=== PATIENT | male | born 2005 | race Two or more races ===

== ENCOUNTER 2024-10-21 13:03 | Emergency (ER) | payer MEDICAID, SELFPAY ==
[2024-10-21 13:22] VITALS: BP 113/50; PULSE 71; RESP 16; TEMP 37.4; O2SAT 99; BMI 19.5
--- NOTE | 2024-10-21 13:33 | PD.EDHA ---
ED Headache RME/HPI General Chief Complaint: Dental/Oral/Throat Stated Complaint: TONSIL PAIN / SWELLINGL HEADACHE Time Seen by Provider: 10/21/24 13:23 Source: patient Arrival date/time: 10/21/24 13:03 Mode of arrival: ambulatory Limitations: no limitations RME / HPI RME / HPI Narrative: 19-year-old male presents with a chief complaint of a sore throat with difficulty swallowing food and fluids that began 2 days ago. Patient denies fever. Patient is able to consume fluids and continues to urinate. MD Complaint: other Onset (ago): day(s) Time: 02:00 (2 days) Onset description: gradual Severity: moderate Severity scale (1-10): 3 Quality: aching Relieving factors: nothing Exacerbating factors: none Related Data Previous Rx's ?Medication ?Instructions ?Recorded amoxicillin 875 mg-potassium 1 tab PO BID #14 tabs 09/27/22 clavulanate 125 mg tablet ibuprofen 600 mg tablet 600 mg PO TID PRN pain #30 tabs 09/27/22 acetaminophen 500 mg tablet 500 mg PO QID PRN pain #14 tabs 10/26/23 (Acetaminophen Pain Relief) tramadol 50 mg tablet 50 mg PO Q8H PRN pain #10 tabs 10/26/23 penicillin V potassium 500 mg 500 mg PO QID 10 days #40 tabs 10/21/24 tablet prednisone 20 mg tablet 20 mg PO QDAY 5 days #5 tabs 10/21/24 Allergies Allergy/AdvReac Type Severity Reaction Status Date / Time ibuprofen (From Motrin) Allergy Swelling Verified 10/26/23 22:46 of Lip/Tongue/Throat Review of Systems Review of Systems Systems Reviewed: All systems reviewed, normal except as documented Constitutional Constitutional: Reports as per HPI Comments: Sore throat Eyes Eyes: Reports as per HPI ENT Ears, Nose, Mouth, and Throat: Reports odynophagia, Reports post nasal drip and Reports sore throat Cardiovascular Cardiovascular: Reports system reviewed and no additional complaints, except as documented and Reports as per HPI Respiratory Respiratory: Reports system reviewed and no additional complaints, except as documented and Reports as per HPI Gastrointestinal Gastrointestinal: Reports odynophagia Neurologic Neurologic: Reports system reviewed and no additional complaints, except as documented and Reports as per HPI Past Medical History Social History SMOKING STATUS: Light (< 1 pack/day) ED Exam General Limitations: Present no limitations General appearance: Present alert and in no apparent distress Head Head exam: Present atraumatic Eye Eye exam: Present normal appearance and EOMI ENT ENT exam: Present normal exam, mucous membranes moist, TM's normal bilaterally and normal external ear exam Neck Neck exam: Present normal inspection and full ROM Chest Chest inspection: Present normal inspection Respiratory Respiratory exam: Present normal lung sounds bilaterally Cardiovascular Cardiovascular exam: Present regular rate Course Quality Measures none Vital Signs Vital signs: Vital Signs Temperature 99.4 F 10/21/24 13:22 Pulse Rate 71 10/21/24 13:22 Respiratory Rate 16 10/21/24 13:22 Blood Pressure 113/50 L 10/21/24 13:22 Pulse Oximetry (%) 99 10/21/24 13:22 Oxygen Delivery Method Room Air 10/21/24 13:22 Given pulse ox 99% room air Headache MDM Narrative MDM Narrative:: Patient will have penicillin 500 mg to be consumed presents emerged part 1 p.o. every 6+ x 10 days. Patient Prednisone 20 mg to be consumed 1 p.o. daily x 5 days. Patient has consumed Tylenol 650 mg every 4 hours as needed. Patient is to return if worse or if he is to follow-up with primary care physician in 3 to 4 days. Patient data External records reviewed:: [facility] previous records Clinical information provided by:: patient Social determinants that could affect healthcare access:: none Patient has the following chronic illnesses:: none How is presenting disease/condition affected by chronic disease/condition?: exacerbated by Evaluation data The following diagnostics were reviewed and interpreted by me:: lab results Lab and/or radiology exams considered but not ordered:: none Interpretation Summary: na Medications / Prescriptions Medications or Prescriptions considered but not ordered:: na Medication administrations:: na Consultations Consultation(s) initiated? (list below): No Diagnosis Differential diagnosis headache: other Most likely diagnosis given after review of the tests above:: Tonsillitis Admission Indicated Admission indicated?: not indicated Admission Request Was there a request for admission?: No Disposition Plan Disposition Plan: Discharge Discharge Attestation Discharge Attestation: The patient and all family members were given an opportunity to ask questions and understood the discharge instructions. Discharge instructions specifically effects, indications for sooner follow up or return to the emergency department, and the expected course of current diagnosis. Patient condition: Stable Discharge Plan Plan Patient Disposition: HOME (Self Care) Disposition Comment: Stable Prescriptions/Referrals Prescriptions/Med Rec: New penicillin V potassium 500 mg tablet 500 mg PO QID 10 Days Qty: 40 0RF prednisone 20 mg tablet 20 mg PO QDAY 5 Days Qty: 5 0RF No Action amoxicillin-pot clavulanate 875-125 mg tablet 1 tab PO BID Qty: 14 0RF ibuprofen 600 mg tablet 600 mg PO TID PRN (Reason: pain) Qty: 30 0RF tramadol 50 mg tablet 50 mg PO Q8H PRN (Reason: pain) Qty: 10 0RF acetaminophen [Acetaminophen Pain Relief] 500 mg tablet 500 mg PO QID PRN (Reason: pain) Qty: 14 0RF Problem List Clinical Impression: Acute tonsillitis Patient/Caregiver Discharge Instructions Discharge Activity: other Education Materials: ED Pharyngitis, Report Pending Additional Instructions: Patient is a gargle with warm water and salt, soft food, continue liquids as necessary Print Language: Frisian Stand Alone Forms: Shayla Award Info., Work/School Release, Patient Portal Info Letter PA/TELETYPE TECHNICIAN Supervising Physician PA/TELETYPE TECHNICIAN Supervising Physician: valeria
== END 2024-10-21 14:00 | disposition home or self-care (01) ==
LOC: SERX 13:56
PROVIDERS: Emergency Provider Emergency Medicine
DX: J03.90 Acute tonsillitis, unspecified (principal); F17.210 Nicotine dependence, cigarettes, uncomplicated
CPT/HCPCS: 99281

== ENCOUNTER 2025-02-24 03:21 | Emergency (ER) | payer MEDICAID, SELFPAY ==
[2025-02-24 03:21] VITALS: BMI 20.5
[2025-02-24 03:35] VITALS: BP 135/77; PULSE 69; RESP 16; TEMP 36.8; O2SAT 97
--- NOTE | 2025-02-24 03:49 | EDNOTE_ITS ---
ED Anxiety RME/HPI General Chief Complaint: Anxiety Stated Complaint: ANXIETY ATTACK Time Seen by Provider: 02/24/25 03:42 Arrival date/time: 02/24/25 03:21 20M with history of anxiety and drug use presents to ED with anxiety and insomnia. Patient denies SI/HI. Patient was taking meds, but stopped because they weren't working. Patient since last month as he states he feels worse after the marijuana wears off. Limitations: no limitations Related Data Previous Rx's ?Medication ?Instructions ?Recorded amoxicillin 875 mg-potassium 1 tab PO BID #14 tabs clavulanate 125 mg tablet ibuprofen 600 mg tablet 600 mg PO TID PRN pain #30 t abs 09/27/22 acetaminophen 500 mg tablet 500 mg PO QID PRN pain #14 tabs 10/26/23 (Acetaminophen Pain Relief) tramadol 50 mg tablet 50 mg PO Q8H PRN pain #10 ta bs 10/26/23 Allergies Allergy/AdvReac Type Severity Reaction Status Date / Time ibuprofen (From Motrin) Allergy Swelling Verified 10/26/23 22:46 of Lip/Tongue/Throat Review of Systems Review of Systems Systems Reviewed: All systems reviewed, normal except as documented Constitutional Constitutional: Reports system reviewed and no additional complaints, except as documented, Denies fever(s) and Denies headache(s) ENT Ears, Nose, Mouth, and Throat: Denies disequilibrium and Denies headache(s) Cardiovascular Cardiovascular: Reports system reviewed and no additional complaints, except as documented, Denies chest pain and Denies dyspnea Respiratory Respiratory: Reports system reviewed and no additional complaints, except as documented, Denies cough and Denies dyspnea Gastrointestinal Gastrointestinal: Reports system reviewed and no additional complaints, except as documented, Denies abdominal pain, Denies nausea and Denies vomiting Neurologic Neurologic: Reports system reviewed and no additional complaints, except as documented, Denies confusion, Denies disequilibrium and Denies headache(s) Psychiatric Psychiatric: Reports as per HPI, Reports anxiety, Denies confusion and Reports other (insomnia) Past Medical History Social History SMOKING STATUS: Current some day smoker ED Exam General Limitations: Present no limitations General appearance: Present alert, in no apparent distress and anxious Head Head exam: Present atraumatic Eye Eye exam: Present normal appearance, PERRL and EOMI ENT ENT exam: Present normal exam, normal oropharynx and mucous membranes moist Neck Neck exam: Present normal inspection, full ROM and trachea midline Chest Chest inspection: Present normal inspection and symmetric chest wall rise Respiratory Respiratory exam: Present normal lung sounds bilaterally Cardiovascular Cardiovascular exam: Present regular rate, normal rhythm and normal heart sounds Abdominal Exam Abdominal exam: Present soft and normal bowel sounds Extremities Exam Extremities exam: Present normal inspection and full ROM Back Exam Back exam: Present normal inspection and full ROM Neurological Exam Neurological exam: Present alert, oriented X3 and CN II-XII intact Psychiatric Psychiatric exam: Present normal affect and normal mood Skin Skin exam: Present warm, dry, intact and normal color Course Quality Measures none Orders Category Date Time Status Diazepam [Valium] Med 02/24/25 03:43 Discontinued 10 mg PO X1 ONE Vital Signs Vital signs: Vital Signs Temperature 98.3 F 02/24/25 03:35 Pulse Rate 69 02/24/25 03:35 Respiratory Rate 16 02/24/25 03:35 Blood Pressure 135/77 H 02/24/25 03:35 Pulse Oximetry (%) 97 02/24/25 03:35 Oxygen Delivery Method Room Air 02/24/25 03:35 Anxiety MDM Narrative MDM Narrative: 20M with history of anxiety and drug use presents to ED with anxiety and insomnia. Patient denies SI/HI. Patient was taking meds, but stopped because they weren't working. Patient since last month as he states he feels worse after the marijuana wears off. Physical exam reveals anxious individual. Patient is afebrile and alert. Meds and elder counselor given. Patient data External records reviewed:: [facility] previous records Clinical information provided by:: patient Social determinants that could affect healthcare access:: mental health Patient has the following chronic illnesses:: anxiety/drug How is presenting disease/condition affected by chronic disease/condition?: caused by Evaluation data The following diagnostics were reviewed and interpreted by me:: other (specify) (none) Lab and/or radiology exams considered but not ordered:: not ordered Interpretation Summary: n/a Medications / Prescriptions Medications or Prescriptions considered but not ordered:: ordered Medication administrations:: Medication Administration History Discontinued Medications Diazepam (Diazepam 5 Mg Tablet) 10 mg PO X1 ONE Stop: 02/24/25 03:44 Consultations Consultation(s) initiated? (list below): No Diagnosis Differential diagnosis anxiety: hyperventilation, panic disorder and acute anxiety Most likely diagnosis given after review of the tests above:: anxiety Admission Indicated Admission indicated?: not indicated Admission Request Was there a request for admission?: No Disposition Plan Disposition Plan: Discharge Discharge Attestation Discharge Attestation: The patient and all family members were given an opportunity to ask questions and understood the discharge instructions. Discharge instructions specifically effects, indications for sooner follow up or return to the emergency department, and the expected course of current diagnosis. Patient condition: Stable Discharge Plan Plan Patient Disposition: HOME (Self Care) Discharge Disposition comment: Stable Prescriptions/Referrals Prescriptions/Med Rec: No Action amoxicillin-pot clavulanate 875-125 mg tablet 1 tab PO BID Qty: 14 0RF ibuprofen 600 mg tablet 600 mg PO TID PRN (Reason: pain) Qty: 30 0RF tramadol 50 mg tablet 50 mg PO Q8H PRN (Reason: pain) Qty: 10 0RF acetaminophen [Acetaminophen Pain Relief] 500 mg tablet 500 mg PO QID PRN (Reason: pain) Qty: 14 0RF Referrals: Temporary Provider,ED [Physician] - In 1 week Problem List Clinical Impression: Anxiety Patient/Caregiver Discharge Instructions Education Materials: Your Body's Response to Anxiety, ED Anxiety Reaction Additional Instructions: Please follow-up with PCP within 24-48 hours and return immediately if symptoms worsen. Print Language: Japanese Stand Alone Forms: Patient Portal Info Letter ERNA/AGUEDA Supervising Physician ABRAHAM Supervising Physician: Dr. Jaeger
[2025-02-24] MEDS: DIAZEPAM 5 MG TABLET 10 MG PO (03:50)
== END 2025-02-24 03:52 | disposition home or self-care (01) ==
LOC: SERX 03:48
PROVIDERS: Emergency Provider Emergency Medicine
DX: F41.9 Anxiety disorder, unspecified (principal); G47.00 Insomnia, unspecified
CPT/HCPCS: 99282; A9270

== ENCOUNTER 2025-02-26 01:28 | Emergency (ER) | payer MEDICAID, SELFPAY ==
[2025-02-26 01:29] VITALS: BMI 20.9
[2025-02-26 02:03] VITALS: BP 131/71; PULSE 79; RESP 18; TEMP 37.2; O2SAT 98
--- NOTE | 2025-02-26 02:13 | PD.EDRME ---
Rapid Medical Screening Exam RME Arrival date/time: 02/26/25 01:28 20M with history of anxiety and drug use presents to ED with thoughts of hurting himself including by punching himself and using his pocketknife on himself. Patient was here 2 days ago but didn't have SI then. Chief Complaint: Anxiety Vital signs: Vital Signs Temperature 98.9 F 02/26/25 02:03 Pulse Rate 79 02/26/25 02:03 Respiratory Rate 18 02/26/25 02:03 Blood Pressure 131/71 H 02/26/25 02:03 Pulse Oximetry (%) 98 02/26/25 02:03 Oxygen Delivery Method Room Air 02/26/25 02:03
[2025-02-26 03:02] LABS: Basophils # (Auto) 0.0 Thou/mm3 (0.0-0.2); Basophils % (Auto) 0 % (0-2.5); Eosinophils # (Auto) 0.1 Thou/mm3 (0.0-0.5); Eosinophils % (Auto) 1 % (0-10); Hematocrit 46.0 % (41.0-53.0); Hemoglobin 15.9 g/dL (13.5-16.0); Immature Granulocytes Auto 0.02 Thou/mm3 (0.00-0.00); Lymphocytes # (Auto) 2.8 Thou/mm3 (1.0-4.8); Lymphocytes % (Auto) 38 % (10-50); Mean Corpuscular HGB Conc 34.6 g/dl (31.0-37.0); Mean Corpuscular Hemoglobin 29.9 pg (25.0-35.0); Mean Corpuscular Volume 87 fL (80-100); Monocytes # (Auto) 0.7 Thou/mm3 (0.0-0.8); Monocytes % (Auto) 9 % (0-12); Neutrophils # (Auto) 3.9 Thou/mm3 (1.8-7.7); Neutrophils % (Auto) 52 % (37-80); Nucleated Red Blood Cell # 0.00 Thou/mm3 (0.00-0.00); Nucleated Red Blood Cell % 0 /100 WBC (0); Platelet Count 229 Thou/mm3 (140-440); RDW Standard Deviation 42.5 fL (35.1-43.9); Red Blood Count 5.32 Miln/mm3 (4.50-5.90); White Blood Count 7.5 Thou/mm3 (3.8-10.6)
[2025-02-26 03:11] LABS: Amphetamine/Methamp Scrn,U Negative (Negative); Barbiturate Screen,Urine Negative (Negative); Benzodiazepines Screen,Urine Positive (Negative); Benzoylecgonine Screen, Ur Negative (Negative); Fentanyl Screen,Urine Negative (Negative); Opiate Screen,Urine Negative (Negative); THC Screen,Urine Positive (Negative)
[2025-02-26 03:24] LABS: Acetaminophen < 2.0 mcg/mL (10.0-20.0); Alanine Aminotransferase 9 U/L (10-49); Albumin, Serum 4.5 gm/dL (3.5-5.0); Albumin/Globulin Ratio 2.0 (1.2-2.2); Alkaline Phosphatase 87 U/L (46-116); Anion Gap 9 (7-16); Aspartate Amino Transferase 17 U/L (0-34); BUN/Creatinine Ratio 10 Ratio (12-20); Bilirubin,Total 0.7 mg/dL (0.3-1.2); Blood Urea Nitrogen 8 mg/dL (9-23); Calcium 10.2 mg/dL (8.3-10.6); Calcium (Corrected) 10.2 mg/dL (8.5-10.1); Carbon Dioxide 25.3 mMol/L (20.0-31.0); Chloride 106 mMol/L (98-107); Creatinine (Component) 0.8 mg/dL (0.6-1.3); Estimated Creatinine Clearance 140.6 mL/min (>60); Globulin 2.2 gm/dL (2.3-3.5); Glucose 85 mg/dL (74-106); Osmolality,Calculated 276 (275-295); Potassium 3.7 mMol/L (3.4-5.1); Salicylate < 3.0 mg/dL; Sodium 140 mMol/L (136-145); Thyroid Stimulating Hormone 2.39 uIU/mL (0.55-4.78); Total Protein 6.7 gm/dL (5.7-8.2); eGFR > 60 See Note
[2025-02-26 03:52] LABS: Syphilis Nonreactive (Nonreactive)
[2025-02-26 06:33] VITALS: BP 119/73; PULSE 80; RESP 18; TEMP 36.5; O2SAT 98
--- NOTE | 2025-02-26 07:35 | EDNOTE_ITS ---
ED Anxiety RME/HPI General Chief Complaint: Anxiety Stated Complaint: PANIC ATTACK Time Seen by Provider: 02/26/25 05:07 Arrival date/time: 02/26/25 01:28 Limitations: no limitations RME / HPI RME / HPI narrative: 02/26/25 01:28 20M with history of anxiety and drug use presents to ED with thoughts of hurting himself including by punching himself and using his pocketknife on himself. Patient was here 2 days ago but didn't have SI then. complaint: anxiety Onset (ago): day(s) Symptoms: other (Patient with suicidal ideation) Severity: severe Quality: constant History of similar episodes: Yes Provoking factors: emotional stress Exacerbating factors: thinking about event Associated symptoms: palpitations Related Data Previous Rx's ?Medication ?Instructions ?Recorded amoxicillin 875 mg-potassium 1 tab PO BID #14 tabs clavulanate 125 mg tablet ibuprofen 600 mg tablet 600 mg PO TID PRN pain #30 t abs 09/27/22 acetaminophen 500 mg tablet 500 mg PO QID PRN pain #14 tabs 10/26/23 (Acetaminophen Pain Relief) tramadol 50 mg tablet 50 mg PO Q8H PRN pain #10 ta bs 10/26/23 alprazolam 0.25 mg tablet (Xanax) 0.25 mg PO BID ANXIE TY #14 tabs 02/26/25 Allergies Allergy/AdvReac Type Severity Reaction Status Date / Time ibuprofen (From Motrin) Allergy Swelling Verified 10/26/23 22:46 of Lip/Tongue/Throat Review of Systems Review of Systems Systems Reviewed: All systems reviewed, normal except as documented Constitutional Constitutional: Reports system reviewed and no additional complaints, except as documented, Denies fever(s) and Denies headache(s) Eyes Eyes: Reports system reviewed and no additional complaints, except as documented ENT Ears, Nose, Mouth, and Throat: Reports system reviewed and no additional complaints, except as documented, Denies disequilibrium and Denies headache(s) Cardiovascular Cardiovascular: Reports system reviewed and no additional complaints, except as documented, Denies chest pain and Denies dyspnea Respiratory Respiratory: Reports system reviewed and no additional complaints, except as documented, Denies cough and Denies dyspnea Gastrointestinal Gastrointestinal: Reports system reviewed and no additional complaints, except as documented, Denies abdominal pain, Denies nausea and Denies vomiting Neurologic Neurologic: Reports system reviewed and no additional complaints, except as documented, Reports behavioral changes, Denies confusion, Denies disequilibrium and Denies headache(s) Psychiatric Psychiatric: Reports as per HPI, Reports anxiety, Reports behavioral changes, Denies confusion, Reports suicidal ideation and Reports other (insomnia) Past Medical History Past Medical History CARDIAC: Negative Congestive Heart Failure RESPIRATORY: Negative Chronic Obstructive Pulmonary Disease (COPD) GENITOURINARY: Negative Renal Disease ENDOCRINE: Negative Diabetes Mellitus Type 1 or Diabetes Mellitus Type 2 PSYCHO/SOCIAL: Positive Schizophrenia (not diagnosed), Bipolar Disorder (not diagnosed) and Attention Deficit Hyperactivity Disorder (not diagnosed) Social History SMOKING STATUS: Current every day smoker ED Exam General Limitations: Present no limitations General appearance: Present alert and in no apparent distress Head Head exam: Present atraumatic Eye Eye exam: Present normal appearance, PERRL and EOMI ENT ENT exam: Present normal exam, normal oropharynx and mucous membranes moist Neck Neck exam: Present normal inspection, full ROM and trachea midline Chest Chest inspection: Present normal inspection and symmetric chest wall rise Respiratory Respiratory exam: Present normal lung sounds bilaterally Cardiovascular Cardiovascular exam: Present regular rate, normal rhythm and normal heart sounds Abdominal Exam Abdominal exam: Present soft and normal bowel sounds Extremities Exam Extremities exam: Present normal inspection and full ROM Back Exam Back exam: Present normal inspection and full ROM Neurological Exam Neurological exam: Present alert, oriented X3 and CN II-XII intact Psychiatric Psychiatric exam: Present depressed, anxious and suicidal ideation; Absent normal affect or normal mood Skin Skin exam: Present warm, dry, intact and normal color Course Quality Measures none Orders Category Date Time Status Acetaminophen Stat Lab 02/26/25 02:47 Completed Alcohol, Blood Medical Stat Lab 02/26/25 07:34 Ordered CBC Stat Lab 02/26/25 02:47 Completed CMP [Comprehensive Metabolic Panel] Stat Lab 02/26/25 02:47 Completed Drug Screen,Urine Stat Lab 02/26/25 02:18 Completed Salicylate Stat Lab 02/26/25 02:47 Completed Syphilis Stat Lab 02/26/25 02:47 Completed TSH [Thyroid Stimulating Hormone] Stat Lab 02/26/25 02:47 Completed Vital Signs Vital signs: Vital Signs Temperature 98.9 F 02/26/25 02:03 Pulse Rate 79 02/26/25 02:03 Respiratory Rate 18 02/26/25 02:03 Blood Pressure 131/71 H 02/26/25 02:03 Pulse Oximetry (%) 98 02/26/25 02:03 Oxygen Delivery Method Room Air 02/26/25 02:03 Anxiety MDM Narrative MDM Narrative: 20M with history of anxiety and drug use presents to ED with thoughts of hurting himself including by punching himself and using his pocketknife on himself. Patient was here 2 days ago but didn't have SI then. Patient data External records reviewed:: [facility] previous records Clinical information provided by:: patient Social determinants that could affect healthcare access:: substance use Patient has the following chronic illnesses:: chronic anxiety How is presenting disease/condition affected by chronic disease/condition?: exacerbated by Evaluation data The following diagnostics were reviewed and interpreted by me:: lab results Lab and/or radiology exams considered but not ordered:: None Interpretation Summary: Laboratories were reviewed and were normal. Urine toxicology had THC and benzodiazepines. Patient with a history of THC use. Patient had been given benzodiazepines for his anxiety. Medications / Prescriptions Medications or Prescriptions considered but not ordered:: ativan Medication administrations:: See above Consultations Consultation(s) initiated? (list below): Yes Consultation #1 (Physician, Specialty, Details): TREATMENT COUNSELOR Diagnosis Differential diagnosis anxiety: acute anxiety Most likely diagnosis given after review of the tests above:: Suicidal ideation, depression, anxiety disorder Admission Indicated Admission indicated?: not indicated Admission Request Was there a request for admission?: No Disposition Plan Disposition Plan: Discharge Discharge Attestation Discharge Attestation: The patient and all family members were given an opportunity to ask questions and understood the discharge instructions. Discharge instructions specifically effects, indications for sooner follow up or return to the emergency department, and the expected course of current diagnosis. Patient condition: Stable Discharge Plan Plan Patient Disposition: HOME (Self Care) Patient condition on transfer: Stable Prescriptions/Referrals Prescriptions/Med Rec: New alprazolam [Xanax] 0.25 mg tablet 0.25 mg PO BID MDD 2 Qty: 14 0RF No Action amoxicillin-pot clavulanate 875-125 mg tablet 1 tab PO BID Qty: 14 0RF ibuprofen 600 mg tablet 600 mg PO TID PRN (Reason: pain) Qty: 30 0RF tramadol 50 mg tablet 50 mg PO Q8H PRN (Reason: pain) Qty: 10 0RF acetaminophen [Acetaminophen Pain Relief] 500 mg tablet 500 mg PO QID PRN (Reason: pain) Qty: 14 0RF Referrals: Misty Crisostomo PA-C [Primary Care Provider] - In 1 week Problem List Clinical Impression: Anxiety Patient/Caregiver Discharge Instructions Education Materials: Understanding Anxiety Disorders, Treating Anxiety Disorders ..., ED Anxiety Reaction Additional Instructions: Follow-up with your therapist as scheduled. Also follow-up with your psychiatry referral as scheduled. Follow-up with your regular medical doctor in 2 to 3 days. Print Language: Lithuanian Stand Alone Forms: Shayla Award Info., Patient Portal Info Letter
[2025-02-26 07:57] VITALS: BP 114/71; PULSE 70; RESP 17; TEMP 36.3; O2SAT 98
[2025-02-26 08:24] LABS: Alcohol, Blood Medical < 3.0 mg/dL (0-10.0)
[2025-02-26 09:23] VITALS: BP 122/77; PULSE 62; RESP 16; TEMP 36.6; O2SAT 100
--- NOTE | 2025-02-26 09:30 | PC.CC ---
0900-Pt is a 20 yo male who entered the ED on a volunarty request for a MH evaluation. ASW Aleyda Kellogg met with patient [id number] to complete assessment. ASW introduced self, role, and reason for assessment. ASW disclosed limits of confidentiality as well. Patient appeared alert and oriented to self, place, and situation. Patient was pleasant; his mood appeared anxious; his behavior appeared nervous. Patient?s thought process was linear and organized. No signs of delusions, paranoid or AVH. Pt reports for the past few days his anxiety has increased. Pt reports that he has insomnia and is not being treated for it. Pt reports that his anxiety and thoughts have increased, specifically at night and described rumination. Pt reports his therapist is Arabella Villalobos at [facility] and ASW confirmed that pt has an upcoming MH appointment on Friday 03/02. Pt reports that last night he felt uneasy and exhausted and could not sleep. Pt reports he smoked marijuana last night in hopes it would ease his anxiety and help him sleep, but reported that it made the symptoms worse. Pt reports he stopped smoking marjuana a few months ago but began a few days ago to help his anxiety. Pt reports he feels tired and wants to sleep but he cannot. Pt denies SI/HI and states he has never had thoughts of ending his life. However, pt reports selfharm such as hitting his face. Pt reports he does not want to do that, but feels that is the only way to stop his anxious feelings. Pt stated he started hitting himself a few days ago and denied h/o self harm. Pt reported the self harm was an isolated incident. Pt reported he does not have a PCP but will schedule an appointment with a provider at [facility] to start on his overall wellness. Pt was hopeful, but was also anxious. ASW staffed the case with KIT Ellis and it was determined that the pt can be provided community resources and discharged. Pt was provided resources to [facility], [facility] and resources to local MH agencies. ASW staffed this [facility] ER provider, he agreed and also prescribed him Xanax upon d/c. Assigned RN is aware.
== END 2025-02-26 09:23 | disposition home or self-care (01) ==
PROVIDERS: Physician Assistant; Emergency Provider Family Medicine; PCP Physician Assistant
DX: F41.9 Anxiety disorder, unspecified (principal)
CPT/HCPCS: 36415; 80053; 80307; 80320; 80329; 84443; 85025; 86780; 96127; 99283; A9270; G0480

== ENCOUNTER 2025-03-14 03:34 | Emergency (ER) | payer MEDICAID, SELFPAY ==
--- NOTE | 2025-03-14 03:46 | PD.EDPSYCH ---
ED Psych RME/HPI General Chief Complaint: Psychiatric Symptoms Stated Complaint: PSYCH EVAL Time Seen by Provider: 03/14/25 03:45 Arrival date/time: 03/14/25 03:34 RME / HPI RME / HPI Narrative: Dr. Ferrari?s Main ED Evaluation: 20yo male presents after having contacted paramedics due to concern for personal safety and that of others. Reports history of bipolar illness/schizophrenia on benzodiazepines only. No command hallucinations. No anteceding illness. Reports he is prone to psychotic rage . PMH includes bipolar illness/schizophrenia (untreated). PSH noncontributory. Denies illicit drug or alcohol use, but does smoke marijuana. Related Data Previous Rx's ?Medication ?Instructions ?Recorded amoxicillin 875 mg-potassium 1 tab PO BID #14 tabs 09/27/22 clavulanate 125 mg tablet ibuprofen 600 mg tablet 600 mg PO TID PRN pain #30 tabs 09/27/22 acetaminophen 500 mg tablet 500 mg PO QID PRN pain #14 tabs 10/26/23 (Acetaminophen Pain Relief) tramadol 50 mg tablet 50 mg PO Q8H PRN pain #10 tabs 10/26/23 alprazolam 0.25 mg tablet (Xanax) 0.25 mg PO BID ANXIETY #14 tabs 02/26/25 Allergies Allergy/AdvReac Type Severity Reaction Status Date / Time ibuprofen (From Motrin) Allergy Swelling Verified 10/26/23 22:46 of Lip/Tongue/Throat Review of Systems Review of Systems Systems Reviewed: All systems reviewed, normal except as documented Past Medical History Past Medical History CARDIAC: Negative Congestive Heart Failure RESPIRATORY: Negative Chronic Obstructive Pulmonary Disease (COPD) GENITOURINARY: Negative Renal Disease ENDOCRINE: Negative Diabetes Mellitus Type 1 or Diabetes Mellitus Type 2 PSYCHO/SOCIAL: Positive Schizophrenia (not diagnosed), Bipolar Disorder (not diagnosed) and Attention Deficit Hyperactivity Disorder (not diagnosed) Social History SMOKING STATUS: Current every day smoker ED Exam Narrative Physical exam: GENERAL APPEARANCE: alert and oriented x 4, slightly paranoid, occasional tangential speech, well-developed, well-nourished, no acute distress VITALS: All vitals were reviewed and the pulse ox is % on room air, which is normal according to my interpretation. HEENT: normocephalic, atraumatic NECK: supple LUNGS: no respiratory distress, normal effort HEART: good peripheral perfusion ABDOMEN: non distended EXTREMITIES: atraumatic NEUROLOGIC: awake; alert and oriented x4; cranial nerves II-XII grossly intact PSYCHIATRIC: slightly paranoid mood and affect, goal-directed, noted intermittent SI and HI SKIN: warm, dry, normal color; no rashes Course Quality Measures none Orders Category Date Time Status 1799 Psychiatric Hold NOW Care 03/14/25 04:15 Ordered Acetaminophen Stat Lab 03/14/25 04:35 Received Alcohol, Blood Medical Stat Lab 03/14/25 04:35 Received Basic Metabolic Panel Stat Lab 03/14/25 04:35 Received CBC Stat Lab 03/14/25 04:35 Completed Drug Screen,Urine Stat Lab 03/14/25 04:14 Received Salicylate Stat Lab 03/14/25 04:35 Received Vital Signs Vital signs: Vital Signs Temperature 98.1 F 03/14/25 04:14 Pulse Rate 82 03/14/25 04:14 Respiratory Rate 18 03/14/25 04:14 Blood Pressure 141/82 H 03/14/25 04:14 Pulse Oximetry (%) 98 03/14/25 04:14 Oxygen Delivery Method Room Air 03/14/25 04:14 Psych MDM Narrative MDM Narrative:: Scribe Attestation: 03/14/25 - Ifrah Diaz am scribing for and in the presence of Dr. Ferrari. 20yo male presents after having contacted paramedics due to concern for personal safety and that of others. Reports history of bipolar illness/schizophrenia on benzodiazepines only. Please see PE findings. Patient underwent medical psychiatric screening/laboratory examination which is currently pending at this time. Was placed on a 1799 given SI/HI. Patient's care will be endorsed to AM physician for final disposition. Dx: history of schizophrenia, SI, HI Patient data External records reviewed:: [facility] previous records (Per chart review, patient was seen here on 02/26/25 for anxiety.) Clinical information provided by:: patient Social determinants that could affect healthcare access:: mental health Patient has the following chronic illnesses:: anxiety, bipolar illness/schizophrenia How is presenting disease/condition affected by chronic disease/condition?: caused by Evaluation data The following diagnostics were reviewed and interpreted by me:: lab results Lab and/or radiology exams considered but not ordered:: none Interpretation Summary: Pending at signout. Medications / Prescriptions Medications or Prescriptions considered but not ordered:: none Medication administrations:: none Consultations Consultation(s) initiated? (list below): No Diagnosis Psych Differential Diagnosis: acute psychosis, chronic schizophrenia, suicidal ideation, bipolar disorder, drug-induced psychotic disorder and acute anxiety Most likely diagnosis given after review of the tests above:: see clinical impression below Admission Indicated Admission indicated?: not indicated Admission Request Was there a request for admission?: No Disposition Plan Disposition Plan: other (specify) (Signed out to Dr. Bernal at 6 AM.) Discharge Plan Prescriptions/Referrals Prescriptions/Med Rec: No Action amoxicillin-pot clavulanate 875-125 mg tablet 1 tab PO BID Qty: 14 0RF ibuprofen 600 mg tablet 600 mg PO TID PRN (Reason: pain) Qty: 30 0RF tramadol 50 mg tablet 50 mg PO Q8H PRN (Reason: pain) Qty: 10 0RF acetaminophen [Acetaminophen Pain Relief] 500 mg tablet 500 mg PO QID PRN (Reason: pain) Qty: 14 0RF alprazolam [Xanax] 0.25 mg tablet 0.25 mg PO BID MDD 2 Qty: 14 0RF Referrals: No Primary/Family,Physician [Primary Care Provider] - In 1 week Problem List Clinical Impression: Suicidal ideation, Homicidal ideation, History of schizophrenia Patient/Caregiver Discharge Instructions Print Language: Frisian
[2025-03-14 04:04] VITALS: PULSE 70; RESP 19; O2SAT 97
[2025-03-14 04:14] VITALS: BP 141/82; PULSE 82; RESP 18; TEMP 36.7; O2SAT 98
[2025-03-14 05:15] LABS: Basophils # (Auto) 0.0 Thou/mm3 (0.0-0.2); Basophils % (Auto) 0 % (0-2.5); Eosinophils # (Auto) 0.1 Thou/mm3 (0.0-0.5); Eosinophils % (Auto) 1 % (0-10); Hematocrit 43.7 % (41.0-53.0); Hemoglobin 15.4 g/dL (13.5-16.0); Immature Granulocytes Auto 0.02 Thou/mm3 (0.00-0.00); Lymphocytes # (Auto) 2.6 Thou/mm3 (1.0-4.8); Lymphocytes % (Auto) 44 % (10-50); Mean Corpuscular HGB Conc 35.2 g/dl (31.0-37.0); Mean Corpuscular Hemoglobin 30.7 pg (25.0-35.0); Mean Corpuscular Volume 87 fL (80-100); Monocytes # (Auto) 0.4 Thou/mm3 (0.0-0.8); Monocytes % (Auto) 7 % (0-12); Neutrophils # (Auto) 2.8 Thou/mm3 (1.8-7.7); Neutrophils % (Auto) 47 % (37-80); Nucleated Red Blood Cell # 0.00 Thou/mm3 (0.00-0.00); Nucleated Red Blood Cell % 0 /100 WBC (0); Platelet Count 189 Thou/mm3 (140-440); RDW Standard Deviation 41.7 fL (35.1-43.9); Red Blood Count 5.02 Miln/mm3 (4.50-5.90); White Blood Count 6.0 Thou/mm3 (3.8-10.6)
[2025-03-14 05:40] LABS: Acetaminophen < 2.0 mcg/mL (10.0-20.0); Alcohol, Blood Medical < 3.0 mg/dL (0-10.0); Anion Gap 8 (7-16); BUN/Creatinine Ratio 10 Ratio (12-20); Blood Urea Nitrogen 7 mg/dL (9-23); Calcium 9.3 mg/dL (8.3-10.6); Carbon Dioxide 26.9 mMol/L (20.0-31.0); Chloride 107 mMol/L (98-107); Creatinine (Component) 0.7 mg/dL (0.6-1.3); Glucose 159 mg/dL (74-106); Osmolality,Calculated 284 (275-295); Potassium 3.4 mMol/L (3.4-5.1); Salicylate < 3.0 mg/dL; Sodium 142 mMol/L (136-145); eGFR > 60 See Note
--- NOTE | 2025-03-14 06:24 | PD.EDADDENDU ---
Emergency Room Addendum Addendum Narrative: 0600: Care assumed from Dr. Jaeger the previous shift emergency physician. Past medical, surgical, social and family history reviewed. Vitals and home medications reviewed. I will assume the care of the patient at this time. Patient was placed on a 1799 given SI/HI. Please refer to the emergency department record for history and examination from initial visit.? Patient is medically cleared for psychiatric evaluation. The patient was placed in ED observation care at 03/14/2025 at 0600 hours. The patient was placed in ED observation care pending mental health evaluation. Then, [facility] placed her on 5150 hold and now on observation care because of undifferentiated decompensated behavioral health evaluation, no behavioral health bed available. The patients past medical history, social history, and family history were reviewed. The plan of care will include serial examinations. While in ED observation the patient will have access to water, food, and personal hygiene. If the patient takes home medication(s), they will be continued in ED observation. Physical exam by me shows patient under no acute distress at this time. 0835: [facility] placed the patient on a 5150 hold for DTS due to suicidal ideation with plan to kill himself. Patient is pending placement. 1130: Patient has been accepted to [facility]. ETA is 1300 hours. 1300: EMS here to pick the patient and transport to [facility]. ED observation care ended at 03/14/2025 at 1300 hours. Diagnoses: - Suicidal ideation - Homicidal ideation - History of schizophrenia
[2025-03-14 06:45] LABS: Amphetamine/Methamp Scrn,U Negative (Negative); Barbiturate Screen,Urine Negative (Negative); Benzodiazepines Screen,Urine Positive (Negative); Benzoylecgonine Screen, Ur Negative (Negative); Fentanyl Screen,Urine Negative (Negative); Opiate Screen,Urine Negative (Negative); THC Screen,Urine Positive (Negative)
[2025-03-14 06:49] VITALS: BP 136/80; PULSE 79; RESP 18; TEMP 36.6; O2SAT 98
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
[2025-03-14 07:43] VITALS: BP 101/58; PULSE 64; RESP 17; TEMP 36.7; O2SAT 97
--- NOTE | 2025-03-14 08:36 | PC.CC ---
Driveway Attendant (CC), Bonnie, met with patient [id number] to do initial mental health evaluation. CC introduced herself, role in the agency, reason for visit, and discussed limits of confidentiality. This is 20-year-old, , single male who contacted [facility] for a mental health evaluation due to acting erratic with suicidal/homicidal thoughts. Patient appeared alert and oriented to self, time, place, and situation. Patient appears stated age. Patient made good eye contact. Patient?s attitude appeared pleasant and cooperative. Patient?s behavior appeared ordinary. Patient?s mood appears ordinary. No signs of delusions, paranoia or hallucinations. CC was abble to verify address and phone number. Patient reported that he resides at home with his parents and two older brothers. Patient reported that he is independent with all ADLs, no DME use. Patient is currently unemployed and financially sustaning himself from using his savings and financial assistance from family. Patient reported that he contacted [facility] after feeling rage towards his family. Patient reported that last night, he decided to cut his long hair off, when he showed his family, they all laughed at him. Patient reported that at that time, he could feel an uncontrollable rage, wanted to break/hit items, and started pacing around the house; he reported, I wanted to beat their ass . Patient declined having any intention of hitting his family or having a plan to kill them. He reported that he practices self control by calling [facility]. Patient reported that he often suffers from explosive outburst. Patient reported that he has threatened a few people, especially, his girlfriend's father, but denies having a plan to kill him. Patient reported that before calling [facility], he thought about driving his vehicle to [place], but stopped himself when he thought the financial burden it would create for his family to bury him.Patient reported that for the last few weeks, he has slept 1 to 2 hours per day. Patient reported that he was attending outpatient therapy services at [facility]; however, he was recently transferred to [facility] for more services. Patient was in the process of being ruled out: schizophrenia vs. bipolar. Patient's follow-up appointment is on 03/18/2025. Patient reported that he presented to the ED on 02/26/2025 for anxiety. Patient was prescribed xanax. Patient reported that is has not helped him. Patient reported that he just feels numbed for a few hours. 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 CC attempted to obtain collateral information from his mother, Roma, with no success. CC discussed case with Natali PANTOJA. CC will complete 5150 hold for DTS due to suicidal ideation with plan to kill himself. CC was unable to safety plan with patient or family. CC completed senior care advisement with patient. CC updated Dr. Bernal and bedside RN-Brenda. Patient is pending LPS Placement.
--- NOTE | 2025-03-14 10:49 | PC.NURSE ---
Ida from [facility] called and wanted report, gave all requested information and Ida states she will accept pt. Ida requests to talk to MATHEUS Nicole, gave phone to MATHEUS Nicole.
--- NOTE | 2025-03-14 11:15 | PC.CC ---
Rug Dyer Helper, Bonnie received a phone from Evelyn, from [facility]. Patient has been accepted under the care of Dr. Garza. Patient will be received at [facility]. RN to provide report to [phone], ext: [phone]. CC completed acute transfer packet. CC scheduled EMS transportation for 1330.
== END 2025-03-14 12:05 ==
PROVIDERS: Emergency Medicine; Emergency Provider Emergency Medicine
DX: F20.9 Schizophrenia, unspecified (principal); F31.9 Bipolar disorder, unspecified; R45.851 Suicidal ideations; R45.850 Homicidal ideations; Z75.1 Person awaiting admission to adequate facility elsewhere
CPT/HCPCS: 36415; 80048; 80307; 80320; 80329; 85025; 96127; 99285; G0480

== ENCOUNTER 2025-03-30 23:30 | Emergency (ER) | payer MEDICAID, SELFPAY ==
[2025-03-30 23:31] VITALS: BMI 20.9
--- NOTE | 2025-03-30 23:53 | PD.EDPSYCH ---
ED Psych RME/HPI General Chief Complaint: Psychiatric Symptoms Stated Complaint: SUICIDAL THOUGHTS Time Seen by Provider: 03/30/25 23:53 Arrival date/time: 03/30/25 23:30 RME / HPI RME / HPI Narrative: Dr. Wiggins?s Main ED Evaluation: 20yo male with a history of schizophrenia presents to the ED for a voluntary psychiatric evaluation. Patient states he was recently discharged from [facility], but reports he still continues to feel suicidal and homicidal. 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 He started taking Risperdal today. No other complaints reported. Related Data Previous Rx's ?Medication ?Instructions ?Recorded amoxicillin 875 mg-potassium 1 tab PO BID #14 tabs 09/27/22 clavulanate 125 mg tablet ibuprofen 600 mg tablet 600 mg PO TID PRN pain #30 tabs 09/27/22 acetaminophen 500 mg tablet 500 mg PO QID PRN pain #14 tabs 10/26/23 (Acetaminophen Pain Relief) tramadol 50 mg tablet 50 mg PO Q8H PRN pain #10 tabs 10/26/23 alprazolam 0.25 mg tablet (Xanax) 0.25 mg PO BID ANXIETY #14 tabs 02/26/25 Allergies Allergy/AdvReac Type Severity Reaction Status Date / Time ibuprofen (From Motrin) Allergy Swelling Verified 10/26/23 22:46 of Lip/Tongue/Throat Review of Systems Review of Systems Systems Reviewed: All systems reviewed, normal except as documented ED Exam Narrative Physical exam: Generally patient is alert oriented noncombative and obeying commands, head is normocephalic atraumatic, eyes pupils equal round reactive to light, neck shows no nuchal rigidity, heart regular rate and rhythm, lungs clear to auscultation equal bilaterally, abdomen soft bowel sounds present nondistended nontender, neurologic exam shows the patient be alert and orient x 4 with mild pressure type speech but [place] Coma Scale of 15 without focal motor deficit. Psychiatric exam showed mild pressure type speech and the patient states that he is suicidal on again off again Course Quality Measures none Orders Category Date Time Status Consult Supervisor Edging NOW Care 03/31/25 00:11 Active Alcohol, Blood Medical Stat Lab 03/31/25 00:13 Completed CBC Stat Lab 03/31/25 00:13 Completed CMP [Comprehensive Metabolic Panel] Stat Lab 03/31/25 00:13 Completed Drug Screen,Urine Stat Lab 03/31/25 00:30 Completed risperiDONE [RisperDAL] Med 03/31/25 00:09 Discontinued 1 mg PO X1 ONE Vital Signs Vital signs: Vital Signs Temperature 98.7 F 03/30/25 23:59 Pulse Rate 98 03/30/25 23:59 Respiratory Rate 18 03/30/25 23:59 Blood Pressure 127/80 03/30/25 23:59 Pulse Oximetry (%) 96 03/30/25 23:59 Oxygen Delivery Method Room Air 03/30/25 23:59 Psych MDM Narrative MDM Narrative:: Scribe Attestation: 03/30/25 - Emily, Ifrah King, am scribing for and in the presence of Dr. Wiggins. I interpreted all labs. There was no significant abnormality. Patient's plan for suicide is to get the police to kill him. Patient was given 1 mg of Risperdal p.o. here in the emergency room. He is medically clear for social media manager evaluation. He wants to be a voluntary admit to a psychiatric facility. Differential diagnosis: Suicidal ideation, homicidal ideation, acute psychosis, schizophrenia, bipolar disorder Patient data External records reviewed:: [facility] previous records (Per chart review, patient was seen here on 03/14/25 for schizophrenia.) Clinical information provided by:: patient Social determinants that could affect healthcare access:: mental health Patient has the following chronic illnesses:: schizophrenia How is presenting disease/condition affected by chronic disease/condition?: caused by Evaluation data The following diagnostics were reviewed and interpreted by me:: lab results Lab and/or radiology exams considered but not ordered:: none Interpretation Summary: See MDM. Medications / Prescriptions Medications or Prescriptions considered but not ordered:: none Medication administrations:: Medication Administration History Discontinued Medications Risperidone (Risperidone 1 Mg Tablet) 1 mg PO X1 ONE Stop: 03/31/25 00:10 Last Admin: 03/31/25 00:42 Dose: 1 mg Documented By: ALE see above Consultations Consultation(s) initiated? (list below): No Diagnosis Psych Differential Diagnosis: other (See MDM.) Most likely diagnosis given after review of the tests above:: see clinical impression below Admission Indicated Admission indicated?: not indicated Admission Request Was there a request for admission?: No Disposition Plan Disposition Plan: other (specify) (Signed out to Dr. Love at 6 AM.) Discharge Plan Prescriptions/Referrals Prescriptions/Med Rec: No Action amoxicillin-pot clavulanate 875-125 mg tablet 1 tab PO BID Qty: 14 0RF ibuprofen 600 mg tablet 600 mg PO TID PRN (Reason: pain) Qty: 30 0RF tramadol 50 mg tablet 50 mg PO Q8H PRN (Reason: pain) Qty: 10 0RF acetaminophen [Acetaminophen Pain Relief] 500 mg tablet 500 mg PO QID PRN (Reason: pain) Qty: 14 0RF alprazolam [Xanax] 0.25 mg tablet 0.25 mg PO BID MDD 2 Qty: 14 0RF Referrals: Miguel Angel Garcia MD [Primary Care Provider, Family Practice] - In 1 week Problem List Clinical Impression: Suicidal ideation, Bipolar disorder, Chronic schizophrenia Patient/Caregiver Discharge Instructions Additional Instructions: Patient is medically clear for social media manager evaluation Print Language: Azeri
[2025-03-30 23:59] VITALS: BP 127/80; PULSE 98; RESP 18; TEMP 37.1; O2SAT 96
[2025-03-31 00:36] LABS: Basophils # (Auto) 0.0 Thou/mm3 (0.0-0.2); Basophils % (Auto) 0 % (0-2.5); Eosinophils # (Auto) 0.1 Thou/mm3 (0.0-0.5); Eosinophils % (Auto) 2 % (0-10); Hematocrit 41.9 % (41.0-53.0); Hemoglobin 14.3 g/dL (13.5-16.0); Immature Granulocytes Auto 0.02 Thou/mm3 (0.00-0.00); Lymphocytes # (Auto) 2.3 Thou/mm3 (1.0-4.8); Lymphocytes % (Auto) 35 % (10-50); Mean Corpuscular HGB Conc 34.1 g/dl (31.0-37.0); Mean Corpuscular Hemoglobin 30.3 pg (25.0-35.0); Mean Corpuscular Volume 89 fL (80-100); Monocytes # (Auto) 0.9 Thou/mm3 (0.0-0.8); Monocytes % (Auto) 14 % (0-12); Neutrophils # (Auto) 3.2 Thou/mm3 (1.8-7.7); Neutrophils % (Auto) 49 % (37-80); Nucleated Red Blood Cell # 0.00 Thou/mm3 (0.00-0.00); Nucleated Red Blood Cell % 0 /100 WBC (0); Platelet Count 205 Thou/mm3 (140-440); RDW Standard Deviation 42.0 fL (35.1-43.9); Red Blood Count 4.72 Miln/mm3 (4.50-5.90); White Blood Count 6.5 Thou/mm3 (3.8-10.6)
[2025-03-31 00:46] LABS: Amphetamine/Methamp Scrn,U Negative (Negative); Barbiturate Screen,Urine Negative (Negative); Benzodiazepines Screen,Urine Negative (Negative); Benzoylecgonine Screen, Ur Negative (Negative); Fentanyl Screen,Urine Negative (Negative); Opiate Screen,Urine Negative (Negative); THC Screen,Urine Positive (Negative)
[2025-03-31 01:16] LABS: Alanine Aminotransferase 9 U/L (10-49); Albumin, Serum 4.1 gm/dL (3.5-5.0); Albumin/Globulin Ratio 2.3 (1.2-2.2); Alcohol, Blood Medical < 3.0 mg/dL (0-10.0); Alkaline Phosphatase 67 U/L (46-116); Anion Gap 10 (7-16); Aspartate Amino Transferase 16 U/L (0-34); BUN/Creatinine Ratio 11 Ratio (12-20); Bilirubin,Total 0.3 mg/dL (0.3-1.2); Blood Urea Nitrogen 9 mg/dL (9-23); Calcium 9.3 mg/dL (8.3-10.6); Calcium (Corrected) 9.3 mg/dL (8.5-10.1); Carbon Dioxide 26.1 mMol/L (20.0-31.0); Chloride 107 mMol/L (98-107); Creatinine (Component) 0.8 mg/dL (0.6-1.3); Estimated Creatinine Clearance 140.6 mL/min (>60); Globulin 1.8 gm/dL (2.3-3.5); Glucose 123 mg/dL (74-106); Osmolality,Calculated 284 (275-295); Potassium 3.5 mMol/L (3.4-5.1); Sodium 143 mMol/L (136-145); Total Protein 5.9 gm/dL (5.7-8.2); eGFR > 60 See Note
--- NOTE | 2025-03-31 02:48 | PC.NURSE ---
WE HAD DOWN TIME FROM [phone].
[2025-03-31 06:26] VITALS: BP 117/68; PULSE 73; RESP 16; TEMP 36.6; O2SAT 98
[2025-03-31 10:01] VITALS: PULSE 89; RESP 16; TEMP 36.6; O2SAT 99
--- NOTE | 2025-03-31 10:42 | EDNOTE_ITS ---
Emergency Room Addendum Addendum Narrative: 0600: Care assumed from Dr. Wiggins, the previous shift emergency physician. Past medical, surgical, social and family history reviewed. Vitals and home medications reviewed. I will assume the care of the patient at this time, pending mental health evaluation and final disposition. Please refer to the emergency department record for history and examination from initial visit.?The following addendum documentation note is intended to reflect any pending information, findings, or radiology results not included in the patient?s initial chart. 1110h: Patient has been evaluated by our social worker delinquency prevention and cleared the patient to be discharged home. State there is a safety plan in place, both patient and mother are in agreement.
--- NOTE | 2025-03-31 11:01 | PC.CC ---
Patient is a 20 year-old year old male who presents to the hospital for suicidal ideations. Jak made [id number] contact with patient to complete assessment. MOTOR VEHICLE OR CARAVAN SALESPERSON introduced self, role, and reason for assessment. MOTOR VEHICLE OR CARAVAN SALESPERSON disclosed limits of confidentiality as well. Patient appeared alert and oriented to self, place, and situation. Patient made appropriate eye contact with this ticket writer and remained euthymic throughout assessment. Patient?s attitude appeared pleasant and cooperative. No signs of delusions, paranoia or hallucinations. Patient confirmed information on demographics and reports to living with his mother and siblings. Patient reports that yesterday he was having an episode as he had not taken his medication. This ticket writer asked patient to clarify what he meant by ?episode?. Patient stated he was having angry outburst and hitting ?stuff?. Patient disclosed he was having suicidal ideations but did not have a plan or intent and this is why he bought himself to the hospital. Patient reports he was recently released from [facility] as he was placed on a 5150-hold. He disclosed that he was placed on a 5150-hold in March as he was having suicidal ideations with plan and intention of driving his car into the [place]. Patient was seen by psychiatrist at [facility] yesterday. Patient has an intake assessment on 04/06/2025 with [facility] for outpatient mental health therapy. At the time of encounter patient denied suicidal and homicidal ideations; visual and auditory hallucinations. Patient reports he feels better now and is no longer feeling angry or suicidal. Patient reports he feels safe being discharged. MOTOR VEHICLE OR CARAVAN SALESPERSON explored with patient what he has to look forward to he stated his future, his family, and his girlfriend. Patient reports that he knows his coping mechanisms when he has suicidal ideations such as going for walks, listening to music, and taking deep breaths. Patient reports that if these coping mechanisms do not work this is when he comes to the hospital. Patient scored High-Risk on the Viola Screening. Patient toxicology was positive for marijuana. Patient provided consent for MOTOR VEHICLE OR CARAVAN SALESPERSON to make contact with his mother, Roma Marcial. She confirmed that patient was seen yesterday by a psychiatrist at [facility] and was prescribed medication. Mother does not know what patient?s diagnosis is. She reports she feels safe taking the patient home and providing extra supervision for the next 72 hours that although she works he will not be home alone as his older brothers are home. Maggie PANTOJA made telephone contact with [facility] staff confirmed patient is connected to them and was seen by Dr. Gordon yesterday and has a follow-up appointment on April 06, 2025. Upon clinical consultation with Natali PANTOJA patient does not meet criteria for 5150-hold and safety plan will be established with patient and mother. Per mother, there are no firearms in the home. Mother reports that she will keep all sharps and medications in a secure location. Patient will not be left alone at home and extra supervision will be provided for the next 72 hours. Mother will ensure patient attends his follow-up appointment with Asim Sarmiento on 04/06/2025 at 1:00 pm. Per mother, she can meat pickler patient from the hospital upon being discharged. Maggie PANTOJA provided update of safety plan to medical team and discharge plan with mother, Roma Marcial.
[2025-03-31 11:38] VITALS: BP 114/70; PULSE 82; RESP 17; TEMP 36.7; O2SAT 98
== END 2025-03-31 11:38 | disposition home or self-care (01) ==
PROVIDERS: Emergency Provider Emergency Medicine; PCP Family Medicine
DX: R45.851 Suicidal ideations (principal); F31.9 Bipolar disorder, unspecified; F20.9 Schizophrenia, unspecified
CPT/HCPCS: 36415; 80053; 80307; 80320; 85025; 96127; 99284; A9270; G0480

== ENCOUNTER 2025-04-02 22:54 | Emergency (ER) | payer MEDICAID, SELFPAY ==
[2025-04-02 22:56] VITALS: BP 164/99; PULSE 112; RESP 19; TEMP 37.4; O2SAT 96
--- NOTE | 2025-04-02 23:09 | PD.EDPSYCH ---
ED Psych RME/HPI General Chief Complaint: Suicidal Stated Complaint: 5150 HOLD DANGER TO SELF Time Seen by Provider: 04/02/25 23:31 Arrival date/time: 04/02/25 22:54 RME / HPI RME / HPI Narrative: See [facility] for Dr. Powers's HPI documentation. Related Data Previous Rx's ?Medication ?Instructions ?Recorded amoxicillin 875 mg-potassium 1 tab PO BID #14 tabs 09/27/22 clavulanate 125 mg tablet ibuprofen 600 mg tablet 600 mg PO TID PRN pain #30 tabs 09/27/22 acetaminophen 500 mg tablet 500 mg PO QID PRN pain #14 tabs 10/26/23 (Acetaminophen Pain Relief) tramadol 50 mg tablet 50 mg PO Q8H PRN pain #10 tabs 10/26/23 alprazolam 0.25 mg tablet (Xanax) 0.25 mg PO BID ANXIETY #14 tabs 02/26/25 Allergies Allergy/AdvReac Type Severity Reaction Status Date / Time ibuprofen (From Motrin) Allergy Swelling Verified 10/26/23 22:46 of Lip/Tongue/Throat Review of Systems Review of Systems Systems Reviewed: All systems reviewed, normal except as documented ED Exam Narrative Physical exam: See [facility] for Dr. Powers's physical exam documentation. Course Quality Measures none Orders Category Date Time Status Referral Psych Eval Stat Cons 04/02/25 23:33 Active Acetaminophen Stat Lab 04/02/25 23:43 Completed Alcohol, Blood Medical Stat Lab 04/02/25 23:43 Completed Bilirubin,Direct Stat Lab 04/02/25 23:43 Completed CBC Stat Lab 04/02/25 23:43 Completed CMP [Comprehensive Metabolic Panel] Stat Lab 04/02/25 23:43 Completed Drug Screen,Urine Stat Lab 04/02/25 23:53 Completed Magnesium Stat Lab 04/02/25 23:43 Completed Salicylate Stat Lab 04/02/25 23:43 Completed TSH [Thyroid Stimulating Hormone] Stat Lab 04/02/25 23:43 Completed Vital Signs Vital signs: Vital Signs Temperature 99.3 F 04/02/25 22:56 Pulse Rate 112 H 04/02/25 22:56 Respiratory Rate 19 04/02/25 22:56 Blood Pressure 164/99 H 04/02/25 22:56 Pulse Oximetry (%) 96 04/02/25 22:56 Oxygen Delivery Method Room Air 04/02/25 22:56 Psych MDM Narrative MDM Narrative:: This section includes all my notes and documentations, including HPI, PE, and ED course. Tico Powers MD HPI: 20yo male with history of schizophrenia, bipolar disorder BIB [facility] on 5150 hold. He reports wanting to be shot by police. No thoughts of hurting other people. Denies hallucinations. No other complaints. ROS: All negative except as documented in HPI. Physical Exam: General: Alert and oriented. No acute distress when remaining still. Eyes: Conjunctivae and lids clear. PERRL. EOMI. ENT: No nasal congestion. Neck: Supple. Heart: RRR. Lungs: No respiratory distress. Good air movement. No rhonchi, wheezing, rales. Abdomen: Soft and nontender. Normal bowel sounds. No distension. No rebound or guarding. Back: No CVA tenderness. Skin: Warm and dry. Neuro: Alert and oriented X 3. Cranial nerves II to XII grossly normal. No peripheral motor deficits. I reviewed all diagnostic test results. Blood tests are unremarkable. UDS positive for marijuana. At this point, diagnoses include: Suicidal ideation Marijuana use Entered order for evaluation by our ED urgent care physician. Patient is medically clear for further psychiatric care. At 6 AM on 04/24, the care of the patient was transferred to Dr. Pat. Tico Powers MD Patient data External records reviewed:: [facility] previous records (Per chart review, patient was seen here on 03/30/25 for bipolar disorder.) Clinical information provided by:: patient and law enforcement Social determinants that could affect healthcare access:: mental health Patient has the following chronic illnesses:: schizophrenia, bipolar disorder How is presenting disease/condition affected by chronic disease/condition?: caused by Evaluation data The following diagnostics were reviewed and interpreted by me:: lab results Lab and/or radiology exams considered but not ordered:: none Interpretation Summary: I reviewed all diagnostic test results. Blood tests are unremarkable. UDS positive for marijuana. Medications / Prescriptions Medications or Prescriptions considered but not ordered:: none Medication administrations:: none Consultations Consultation(s) initiated? (list below): No Diagnosis Psych Differential Diagnosis: acute psychosis, chronic schizophrenia, suicidal ideation, bipolar disorder, depression, drug-induced psychotic disorder and acute anxiety Most likely diagnosis given after review of the tests above:: Suicidal ideation Marijuana use Admission Indicated Admission indicated?: not indicated Explain why admission is indicated or not indicated:: No psychiatric service at this facility. Admission Request Was there a request for admission?: No Disposition Plan Disposition Plan: other (specify) (Signed out to Dr. Pat at 6 AM.) Discharge Plan Prescriptions/Referrals Prescriptions/Med Rec: No Action amoxicillin-pot clavulanate 875-125 mg tablet 1 tab PO BID Qty: 14 0RF ibuprofen 600 mg tablet 600 mg PO TID PRN (Reason: pain) Qty: 30 0RF tramadol 50 mg tablet 50 mg PO Q8H PRN (Reason: pain) Qty: 10 0RF acetaminophen [Acetaminophen Pain Relief] 500 mg tablet 500 mg PO QID PRN (Reason: pain) Qty: 14 0RF alprazolam [Xanax] 0.25 mg tablet 0.25 mg PO BID MDD 2 Qty: 14 0RF Referrals: No Primary/Family,Physician [Primary Care Provider] - In 1 week Problem List Clinical Impression: Suicidal ideation Patient/Caregiver Discharge Instructions Print Language: Zambian
[2025-04-02 23:42] VITALS: BMI 20.9
[2025-04-03 00:08] LABS: Amphetamine/Methamp Scrn,U Negative (Negative); Barbiturate Screen,Urine Negative (Negative); Benzodiazepines Screen,Urine Negative (Negative); Benzoylecgonine Screen, Ur Negative (Negative); Fentanyl Screen,Urine Negative (Negative); Opiate Screen,Urine Negative (Negative); THC Screen,Urine Positive (Negative)
[2025-04-03 00:09] LABS: Basophils # (Auto) 0.0 Thou/mm3 (0.0-0.2); Basophils % (Auto) 0 % (0-2.5); Eosinophils # (Auto) 0.1 Thou/mm3 (0.0-0.5); Eosinophils % (Auto) 1 % (0-10); Hematocrit 43.0 % (41.0-53.0); Hemoglobin 14.6 g/dL (13.5-16.0); Immature Granulocytes Auto 0.04 Thou/mm3 (0.00-0.00); Lymphocytes # (Auto) 2.0 Thou/mm3 (1.0-4.8); Lymphocytes % (Auto) 28 % (10-50); Mean Corpuscular HGB Conc 34.0 g/dl (31.0-37.0); Mean Corpuscular Hemoglobin 30.2 pg (25.0-35.0); Mean Corpuscular Volume 89 fL (80-100); Monocytes # (Auto) 0.8 Thou/mm3 (0.0-0.8); Monocytes % (Auto) 11 % (0-12); Neutrophils # (Auto) 4.2 Thou/mm3 (1.8-7.7); Neutrophils % (Auto) 59 % (37-80); Nucleated Red Blood Cell # 0.00 Thou/mm3 (0.00-0.00); Nucleated Red Blood Cell % 0 /100 WBC (0); Platelet Count 219 Thou/mm3 (140-440); RDW Standard Deviation 43.1 fL (35.1-43.9); Red Blood Count 4.83 Miln/mm3 (4.50-5.90); White Blood Count 7.1 Thou/mm3 (3.8-10.6)
[2025-04-03 00:56] LABS: Acetaminophen < 2.0 mcg/mL (10.0-20.0); Alanine Aminotransferase 11 U/L (10-49); Albumin, Serum 4.5 gm/dL (3.5-5.0); Albumin/Globulin Ratio 2.4 (1.2-2.2); Alcohol, Blood Medical < 3.0 mg/dL (0-10.0); Alkaline Phosphatase 71 U/L (46-116); Anion Gap 8 (7-16); Aspartate Amino Transferase 18 U/L (0-34); BUN/Creatinine Ratio 10 Ratio (12-20); Bilirubin,Direct 0.1 mg/dL (0.0-0.3); Bilirubin,Total 0.3 mg/dL (0.3-1.2); Blood Urea Nitrogen 7 mg/dL (9-23); Calcium 9.5 mg/dL (8.3-10.6); Calcium (Corrected) 9.5 mg/dL (8.5-10.1); Carbon Dioxide 27.7 mMol/L (20.0-31.0); Chloride 108 mMol/L (98-107); Creatinine (Component) 0.7 mg/dL (0.6-1.3); Estimated Creatinine Clearance 160.6 mL/min (>60); Globulin 1.9 gm/dL (2.3-3.5); Glucose 108 mg/dL (74-106); Magnesium 2.0 mg/dL (1.6-2.6); Osmolality,Calculated 285 (275-295); Potassium 3.4 mMol/L (3.4-5.1); Salicylate < 3.0 mg/dL; Sodium 144 mMol/L (136-145); Thyroid Stimulating Hormone 3.03 uIU/mL (0.55-4.78); Total Protein 6.4 gm/dL (5.7-8.2); eGFR > 60 See Note
[2025-04-03 02:00] VITALS: BP 109/68; PULSE 102; RESP 19; TEMP 36.7; O2SAT 97
[2025-04-03 06:03] VITALS: BP 111/73; PULSE 63; RESP 18; TEMP 36.6; O2SAT 98
--- NOTE | 2025-04-03 06:24 | PD.EDADDENDU ---
Emergency Room Addendum <Yumiko White - Last Filed: 04/03/25 06:39> Addendum Narrative: 0600: Care assumed from Dr. Powers, the previous shift emergency physician. Past medical, surgical, social and family history reviewed. Vitals and home medications reviewed. I will assume the care of the patient at this time, pending psychiatric evaluation. Please refer to the emergency department record for history and examination from initial visit.? Physical exam by me shows patient under no acute distress at this time. <Laura Pat MD - Last Filed: 04/03/25 13:31> Addendum Narrative: 0600: Care assumed from Dr. Powers, the previous shift emergency physician. Past medical, surgical, social and family history reviewed. Vitals and home medications reviewed. I will assume the care of the patient at this time, pending psychiatric evaluation. Please refer to the emergency department record for history and examination from initial visit.? Physical exam by me shows patient under no acute distress at this time. Patient no focal neurodeficits, mentating at his baseline. Social work evaluated patient, was able to appropriately safety plan with the patient. Denies SI HI at this time. Patient has an appointment with providers for follow-up for ongoing support with his mental health. Patient hold was rescinded by social work. Will discharge to home with close return precautions follow-up with primary care doctor
--- NOTE | 2025-04-03 08:04 | PC.NURSE ---
Report received from pm nurse, patient sitting up in [facility], restless. Finished eating breakfast. Patient denies SI at this time. Patient states i had an episode patient states he has dellusional thoughts and states he is not working and is having a hard time finding a job. Patient states he has episodes In my own head that he admits is not realistic. Patient also states when he gets these thoughts he feels hopeless and wants to . Patient calm and cooperative at this time, patient awaiting mental health evaluation, 1:1 sitter at bedside for patients safety.
[2025-04-03 08:16] VITALS: BP 121/83; PULSE 83; RESP 16; TEMP 36.8; O2SAT 97
[2025-04-03 10:26] VITALS: BP 115/67; PULSE 85; RESP 18; TEMP 37.1; O2SAT 99
--- NOTE | 2025-04-03 10:30 | PC.NURSE ---
extension worker, Kayli at bedside speaking with patient.
[2025-04-03 13:00] VITALS: BP 112/72; PULSE 80; RESP 18; TEMP 36.4; O2SAT 98
[2025-04-03 15:28] VITALS: BP 127/77; PULSE 72; RESP 18; TEMP 36.4; O2SAT 98
--- NOTE | 2025-04-03 15:46 | PC.CC ---
Addendum entered by Kayli Bhatti 04/03/25 16:04: Mother arrived to transport Pt home. Extension Work Instructor reviewed discharge plan and safety plan with mother. Extension Work Instructor reviewed crisis numbers and ensure mother that if Pt is unable to remain safe or follow safety plan to contact 911 or bring Pt back to ER. Mother agreed and will ensure client is able to follow up with out patient clinic [facility]. Original Note: Pt is a 20 year-old year old male who presents to the hospital for suicidal ideation on a 5150 DTS placed by [facility]. Extension Work Instructor made [id number] contact with pt to complete psychiatric assessment. Extension Work Instructor introduced self, role, and reason for assessment. Extension Work Instructor disclosed limits of confidentiality. Pt appeared alert and oriented to self, place, and situation. Patient made appropriate eye contact with this singer songwriter and remained euthymic throughout assessment. Pt?s attitude appeared pleasant and cooperative. No signs of delusions, paranoia or hallucinations. Pt confirmed information on demographics and reports to living with his mother, father, and siblings. Pt reports night prior he was having an anger episode. Pt reported he was having anger outburst and hitting ?stuff?. Patient disclosed he was having suicidal ideation due to the anger episode and made decision to contact 911 and Pt reported he asked suicide by ems helicopter pilot due to not being able to kill self. Pt reports he was was seen by psychiatrist at [facility] on 03/31/25. Patient has an intake assessment on 04/06/2025 with [facility] for outpatient mental health therapy. At the time of encounter patient denied suicidal and homicidal ideation; visual and auditory hallucinations. Patient reports he feels better now and is no longer feeling angry or suicidal. Patient reports he feels safe being discharged. Pt reports that if thought of SI become extreme he is able to contact crisis lines or come to the hospital. Patient scored High-Risk on the [place] Screening.Patient toxicology was positive for THC. Patient provided consent for singer songwriter to make contact with his mother, Roma Marcial and father Moises Marcial. Mother confirmed Pt was seen by a psychiatrist at [facility] and was prescribed medication. Mother does not know what patient?s diagnosis is. She reports she feels safe taking the patient home and providing extra supervision for the next 72 hours that although she works he will not be home alone as his older brothers are home or his father. Extension Work Instructor consulted with Elisa PANTOJAissa, pt does not meet criteria for 5150-hold and safety plan will be established with pt and mother. Per mother, there are no firearms in the home. Mother reports that she will keep all sharps and medications in a secure location. Patient will not be left alone at home and extra supervision will be provided for the next 72 hours. Mother will ensure patient attends his follow-up appointment with Asim Sarmiento on 04/06/2025 at 1:00 pm. Per mother, she can picker operator patient from the hospital upon being discharged at 2:30pm due to not being off of work. Extension Work Instructor provided update of safety plan to medical team and discharge plan with mother, Roma Marcial.
== END 2025-04-03 15:30 | disposition home or self-care (01) ==
PROVIDERS: Emergency Medicine; Emergency Provider Emergency Medicine
DX: R45.851 Suicidal ideations (principal); F12.90 Cannabis use, unspecified, uncomplicated; F20.9 Schizophrenia, unspecified; F31.9 Bipolar disorder, unspecified; F41.9 Anxiety disorder, unspecified; Z79.899 Other long term (current) drug therapy
CPT/HCPCS: 36415; 80053; 80307; 80320; 80329; 82248; 83735; 84443; 85025; 96127; 99284; A9270; G0480

== ENCOUNTER 2025-04-21 20:40 | Emergency (ER) | payer MEDICAID, SELFPAY ==
[2025-04-21 20:42] VITALS: BP 105/63; PULSE 67; RESP 18; TEMP 37.4; O2SAT 98; BMI 20.9
--- NOTE | 2025-04-21 21:55 | EDNOTE_ITS ---
ED Psych RME/HPI General Chief Complaint: Suicidal Stated Complaint: SUICIDAL THOUGHTS ANXIETY Time Seen by Provider: 04/21/25 20:59 Arrival date/time: 04/21/25 20:40 Mode of arrival: ambulatory Limitations: no limitations RME / HPI RME / HPI Narrative: Patient is a 20-year-old male with medical history notable for PTSD, depression, recurrent suicide attempts in the past within the Emergency Department with concerns for thoughts of self-harm. Patient was at home, he recently started a medication for marijuana induced psychosis that he states has been making him more sad. Today patient became overwhelmed with his thoughts started hitting himself in the head. Patient does not take any blood thinners, did not pass out. Mom decided to bring him to the hospital because patient was saying that he wanted to end his life. Patient is allergic to ibuprofen. States that he has not smoked marijuana since January. Since then he has not had any more episodes of psychosis Related Data Previous Rx's ?Medication ?Instructions ?Recorded amoxicillin 875 mg-potassium 1 tab PO BID #14 tabs clavulanate 125 mg tablet ibuprofen 600 mg tablet 600 mg PO TID PRN pain #30 t abs 09/27/22 acetaminophen 500 mg tablet 500 mg PO QID PRN pain #14 tabs 10/26/23 (Acetaminophen Pain Relief) tramadol 50 mg tablet 50 mg PO Q8H PRN pain #10 ta bs 10/26/23 alprazolam 0.25 mg tablet (Xanax) 0.25 mg PO BID ANXIE TY #14 tabs 02/26/25 Allergies Allergy/AdvReac Type Severity Reaction Status Date / Time ibuprofen (From Motrin) Allergy Swelling Verified 04/21/25 20:47 of Lip/Tongue/Throat ED Exam General Limitations: Present no limitations General appearance: Present alert and in no apparent distress Head Head exam: Present atraumatic, normocephalic and other Eye Eye exam: Present normal appearance, PERRL and EOMI ENT ENT exam: Present normal exam and normal oropharynx Neck Neck exam: Present normal inspection and full ROM Chest Chest inspection: Present normal inspection and symmetric chest wall rise Respiratory Respiratory exam: Absent respiratory distress Cardiovascular Cardiovascular exam: Present regular rate Abdominal Exam Abdominal exam: Present soft; Absent distention or tenderness Extremities Exam Extremities exam: Present normal inspection Neurological Exam Neurological exam: Present alert and other (No focal neurodeficits) Psychiatric Psychiatric exam: Present other (Guarded) Course Quality Measures none Orders Category Date Time Status 179 Psychiatric Hold NOW Care 04/21/25 21:00 Ordered Acetaminophen Stat Lab 04/21/25 21:54 Ordered CBC Stat Lab 04/21/25 21:54 Ordered CMP [Comprehensive Metabolic Panel] Stat Lab 04/21/25 21:54 Ordered Drug Screen,Urine Stat Lab 04/21/25 21:54 Ordered Salicylate Stat Lab 04/21/25 21:54 Ordered UA, C/S IF [Urinalysis, C/S if Indicated] Stat Lab 04/21/25 21:54 Ordered Psych MDM Narrative MDM Narrative:: Patient is a 20-year-old male with medical history notable for PTSD, recurrent suicide attempts in Emergency Department with thoughts of self-harm. Vital signs and exam as listed. Concern for decompensated underlying psychiatric condition. Less likely acute intoxication given patient is nontoxic-appearing, most likely acute intracranial pathology given patient does not have any signs of trauma on external exam, no focal neurodeficits. Patient is 179, ordered labs for medical clearance. At this time my shift is ended transition care over to oncoming provider Dr. Wiggins. Patient is pending medical clearance and social work evaluation. Patient data External records reviewed:: [facility] previous records Clinical information provided by:: patient and family Social determinants that could affect healthcare access:: mental health Patient has the following chronic illnesses:: See MDM How is presenting disease/condition affected by chronic disease/condition?: exacerbated by Evaluation data The following diagnostics were reviewed and interpreted by me:: lab results Lab and/or radiology exams considered but not ordered:: None Interpretation Summary: See MDM Medications / Prescriptions Medications or Prescriptions considered but not ordered:: None Medication administrations:: See above if any Consultations Consultation(s) initiated? (list below): No Diagnosis Psych Differential Diagnosis: other (See MDM) Most likely diagnosis given after review of the tests above:: Thoughts of self-harm Admission Indicated Admission indicated?: not indicated (Patient signed out) Admission Request Was there a request for admission?: No Disposition Plan Disposition Plan: other (specify) (Signed out) Discharge Plan Prescriptions/Referrals Prescriptions/Med Rec: No Action amoxicillin-pot clavulanate 875-125 mg tablet 1 tab PO BID Qty: 14 0RF ibuprofen 600 mg tablet 600 mg PO TID PRN (Reason: pain) Qty: 30 0RF tramadol 50 mg tablet 50 mg PO Q8H PRN (Reason: pain) Qty: 10 0RF acetaminophen [Acetaminophen Pain Relief] 500 mg tablet 500 mg PO QID PRN (Reason: pain) Qty: 14 0RF alprazolam [Xanax] 0.25 mg tablet 0.25 mg PO BID MDD 2 Qty: 14 0RF Problem List Clinical Impression: Suicidal ideation Patient/Caregiver Discharge Instructions Print Language: Turkish
[2025-04-21 22:12] LABS: Collection Type, Urine Clean Catch; RBC,Urine 0 /hpf (0-3); Squamous Epithelial Cell,Urine 0 /hpf (0-5); WBC,Urine 0 /hpf (0-5)
[2025-04-21 22:14] LABS: Basophils # (Auto) 0.0 Thou/mm3 (0.0-0.2); Basophils % (Auto) 1 % (0-2.5); Eosinophils # (Auto) 0.2 Thou/mm3 (0.0-0.5); Eosinophils % (Auto) 2 % (0-10); Hematocrit 43.7 % (41.0-53.0); Hemoglobin 14.9 g/dL (13.5-16.0); Immature Granulocytes Auto 0.01 Thou/mm3 (0.00-0.00); Lymphocytes # (Auto) 2.7 Thou/mm3 (1.0-4.8); Lymphocytes % (Auto) 42 % (10-50); Mean Corpuscular HGB Conc 34.1 g/dl (31.0-37.0); Mean Corpuscular Hemoglobin 30.0 pg (25.0-35.0); Mean Corpuscular Volume 88 fL (80-100); Monocytes # (Auto) 0.6 Thou/mm3 (0.0-0.8); Monocytes % (Auto) 9 % (0-12); Neutrophils # (Auto) 3.0 Thou/mm3 (1.8-7.7); Neutrophils % (Auto) 47 % (37-80); Nucleated Red Blood Cell # 0.00 Thou/mm3 (0.00-0.00); Nucleated Red Blood Cell % 0 /100 WBC (0); Platelet Count 181 Thou/mm3 (140-440); RDW Standard Deviation 41.1 fL (35.1-43.9); Red Blood Count 4.97 Miln/mm3 (4.50-5.90); White Blood Count 6.5 Thou/mm3 (3.8-10.6)
[2025-04-21 22:25] LABS: Amphetamine/Methamp Scrn,U Negative (Negative); Barbiturate Screen,Urine Negative (Negative); Benzodiazepines Screen,Urine Negative (Negative); Benzoylecgonine Screen, Ur Negative (Negative); Fentanyl Screen,Urine Negative (Negative); Opiate Screen,Urine Negative (Negative); THC Screen,Urine Positive (Negative)
[2025-04-21 22:37] LABS: Acetaminophen < 2.0 mcg/mL (10.0-20.0); Alanine Aminotransferase 15 U/L (10-49); Albumin, Serum 4.5 gm/dL (3.5-5.0); Albumin/Globulin Ratio 3.0 (1.2-2.2); Alkaline Phosphatase 73 U/L (46-116); Anion Gap 10 (7-16); Aspartate Amino Transferase 29 U/L (0-34); BUN/Creatinine Ratio 11 Ratio (12-20); Bilirubin,Total 0.3 mg/dL (0.3-1.2); Blood Urea Nitrogen 9 mg/dL (9-23); Calcium 9.3 mg/dL (8.3-10.6); Calcium (Corrected) 9.3 mg/dL (8.5-10.1); Carbon Dioxide 29.1 mMol/L (20.0-31.0); Chloride 106 mMol/L (98-107); Creatinine (Component) 0.8 mg/dL (0.6-1.3); Estimated Creatinine Clearance 140.6 mL/min (>60); Globulin 1.5 gm/dL (2.3-3.5); Glucose 99 mg/dL (74-106); Osmolality,Calculated 287 (275-295); Potassium 3.8 mMol/L (3.4-5.1); Salicylate < 3.0 mg/dL; Sodium 145 mMol/L (136-145); Total Protein 6.0 gm/dL (5.7-8.2); eGFR > 60 See Note
[2025-04-21 22:41] LABS: Amorphous Crystals,Urine Present (Absent); Bilirubin,Urine Negative (Negative); Blood,Urine Negative (Negative); Clarity,Urine Turbid (Clear/Hazy); Color,Urine Yellow (Lt Yel-Yel); Culture Indicated,Urine Not Indicated; Glucose, Urine Negative (Negative); Ketones,Urine Negative (Negative); Leukocyte Esterase,Urine Negative (Negative); Nitrite,Urine Negative (Negative); PH,Urine 7.0 (5.0-7.0); Protein,Urine Trace (Neg - Trace); Specific Gravity,Urine 1.028 (1.001-1.035); Urobilinogen,Urine 6.0 mg/dL (0.0-1.0)
--- NOTE | 2025-04-21 23:04 | PD.EDADDENDU ---
Emergency Room Addendum Addendum Narrative: 2300: Care assumed from Dr. Pat, the previous shift emergency physician. Past medical, surgical, social and family history reviewed. Vitals and home medications reviewed. Results and treatment plan discussed. I will assume the care of the patient at this time and will follow the patient. Please refer to the emergency department record for history and examination from initial visit.
[2025-04-22 06:35] VITALS: BP 101/64; PULSE 67; RESP 17; TEMP 36.6; O2SAT 99
--- NOTE | 2025-04-22 06:49 | EDNOTE_ITS ---
Emergency Room Addendum <Jordin Damon MD - Last Filed: 04/22/25 06:50> Addendum Narrative: Care assumed from Dr. Wiggins . Past medical, surgical, social and family history reviewed. Vitals and home medications reviewed. Results and treatment plan discussed. I will assume the care of the patient at this time and will follow the patient, pending psychiatric placement. Please refer to the emergency department record for history and examination from initial visit. Patient remained stable while under my care. <Jackelin Agosto - Last Filed: 04/22/25 11:30> Addendum Narrative: Care assumed from Dr. Wiggins. Past medical, surgical, social and family history reviewed. Vitals and home medications reviewed. Results and treatment plan discussed. I will assume the care of the patient at this time and will follow the patient, pending psychiatric placement. Please refer to the emergency department record for history and examination from initial visit. Patient remained stable while under my care. Patient has been accepted at [facility] by Dr. Melendez. EMS p/u eta 1320.
[2025-04-22 07:54] VITALS: BP 121/66; PULSE 58; RESP 18; TEMP 36.5; O2SAT 98
--- NOTE | 2025-04-22 08:10 | PC.NURSE ---
PT RESTING IN BED IN NO APPARENT DISTRESS. PT DOES REPORT STILL FEELING SUICIDAL BUT DENIES HOMICIDAL IDEATIONS AT THIS TIME. PT DENIES AUDITORY AND VISUAL HALLUCINATIONS. PT COOPERATIVE.
[2025-04-22 10:19] VITALS: BP 103/65; PULSE 72; RESP 18; TEMP 37.1; O2SAT 96
--- NOTE | 2025-04-22 10:37 | PC.CC ---
Addendum entered by Aleyda Kellogg 04/22/25 11:20: 1119-COMMUNITY DIRECTOR Sushma Leahy called [employer] to arrange transportation. P/u ETA 1320 to [facility] Addendum entered by Aleyda Kellogg 04/22/25 11:12: 1108-[facility] Intake called for acceptance. Accepting provider is Dr. Melendez, pt will go to [address] [place] [address], ETA 1630. NURSE TO NURSE [phone]. ASW will arrange transportation. Addendum entered by Aleyda Kellogg 04/22/25 10:52: 1051-Packet sent at 1051 via [employer]. At this time, there has been no calls for acceptance. Original Note: 1037-Pt is a 20 male BIB his mother requesting a voluntary MH exam due to pt punching and banging his head and disclosing to his mother of SI with plan. ASW-Aleyda Kellogg met with patient [id number] to complete assessment. ASW introduced self, role, and reason for assessment. ASW disclosed limits of confidentiality as well. Patient appeared alert and oriented to self, place, and situation. Patient was pleasant; his mood appeared depressed; his behavior appeared disinhibited with flat affect. Patient?s thought process was linear and organized. No signs of delusions, paranoid or V/h. Pt reported that he has extensive h/o MH hospitalization and was last placed at [facility] about a month ago. Pt stated he is dx with: MDD, SAFIA, Bipolar Disorder, PTSD and Marijuana Use dx. Pt reports he is supposed to be taking medications to treat his dxs but has not been medication compliant. Pt states he would rather smoke marijuana than take drugs. Pt reports he smokes marijuana daily in place of his medications and has been doing for the past month. Pt reports active SI w/plan, and he would end his life by any means possible. Pt stated he would drive into a wall or drive into the [place]. Pt reports he is thinking about any way he could end his life at this time and if d/c he will do so by this evening. Pt reports he mother is scared for him and he reports he has no reason to live. Pt reports he feels unsafe to be alone and does not feel he could safety plan as he feels he is in psychosis. Pt states he feels he should be in a MH facility. ASW staffed this case with MAGNAFLUX OPERATOR, Director Antony Melara and it was determined that the pt would be safest placed in an LPS facility. ER provider agrees to this plan. Assigned RN is aware as well as sales director. ASW will search for LPS placement. Pt is on a 5150 Hold for DTS placed by ASW and MAGNAFLUX OPERATORIngris Melara.
--- NOTE | 2025-04-22 11:15 | PC.NURSE ---
PT UP TO RESTROOM AT THIS TIME
[2025-04-22 13:17] VITALS: BP 118/69; PULSE 65; RESP 18; TEMP 37.2; O2SAT 98
--- NOTE | 2025-04-22 13:21 | PC.NURSE ---
ATTEMPTED TO CALL REPORT TO SERAFIN TUCKER. NURSE ON UNIT NOT ANSWERING. INTAKE NURSE JULIAN TOOK REPORT. EMS AT BEDSIDE TO TAKE PT AT THIS TIME
== END 2025-04-22 13:40 ==
PROVIDERS: Emergency Medicine; Emergency Provider Family Medicine
DX: R45.851 Suicidal ideations (principal); F12.959 Cannabis use, unspecified with psychotic disorder, unspecified; F33.9 Major depressive disorder, recurrent, unspecified; F41.9 Anxiety disorder, unspecified; Z79.899 Other long term (current) drug therapy
CPT/HCPCS: 36415; 80053; 80307; 80329; 81001; 85025; 96127; 99283; A9270; G0480

== ENCOUNTER 2025-05-24 14:03 | Emergency (ER) | payer MEDICAID, SELFPAY ==
--- NOTE | 2025-05-24 14:18 | PD.EDRME ---
Rapid Medical Screening Exam RME Arrival date/time: 05/24/25 14:03 20-year-old male with no known medical history presents to the emergency room with a chief complaint of suicidal ideation. Patient states he has a history of mental health problems and is taking medication but it is not working. Patient states he has a plan to hang himself but does not want his family to bear the expenses I have greeted and performed a focused initial assessment of this patient. A comprehensive ED assessment and evaluation of the patient, analysis of all test results, and completion of the medical decision making process will be conducted by additional ED providers. Chief Complaint: Suicidal Time Seen by Provider: 05/24/25 14:14 Vital signs reviewed by provider: Yes Exam: GCS 15, alert and oriented x 3 Clear bilateral lung sounds Clinical Impression: Suicidal ideation
[2025-05-24 14:25] VITALS: BP 120/66; PULSE 89; RESP 18; TEMP 36.9; O2SAT 100
[2025-05-24 14:26] VITALS: BMI 21.9
[2025-05-24 14:39] LABS: Collection Type, Urine Clean Catch; Squamous Epithelial Cell,Urine 0 /hpf (0-5)
[2025-05-24 14:41] LABS: Bilirubin,Urine Negative (Negative); Blood,Urine Negative (Negative); Clarity,Urine Clear (Clear/Hazy); Color,Urine Yellow (Lt Yel-Yel); Culture Indicated,Urine Not Indicated; Glucose, Urine Negative (Negative); Ketones,Urine Negative (Negative); Leukocyte Esterase,Urine Negative (Negative); Nitrite,Urine Negative (Negative); PH,Urine 8.0 (5.0-7.0); Protein,Urine Trace (Neg - Trace); RBC,Urine 4 /hpf (0-3); Specific Gravity,Urine 1.022 (1.001-1.035); Urobilinogen,Urine 3.0 mg/dL (0.0-1.0); WBC,Urine 1 /hpf (0-5)
[2025-05-24 14:51] LABS: Basophils # (Auto) 0.0 Thou/mm3 (0.0-0.2); Basophils % (Auto) 0 % (0-2.5); Eosinophils # (Auto) 0.1 Thou/mm3 (0.0-0.5); Eosinophils % (Auto) 1 % (0-10); Hematocrit 44.4 % (41.0-53.0); Hemoglobin 15.1 g/dL (13.5-16.0); Immature Granulocytes Auto 0.02 Thou/mm3 (0.00-0.00); Lymphocytes # (Auto) 1.8 Thou/mm3 (1.0-4.8); Lymphocytes % (Auto) 28 % (10-50); Mean Corpuscular HGB Conc 34.0 g/dl (31.0-37.0); Mean Corpuscular Hemoglobin 29.8 pg (25.0-35.0); Mean Corpuscular Volume 88 fL (80-100); Monocytes # (Auto) 0.6 Thou/mm3 (0.0-0.8); Monocytes % (Auto) 9 % (0-12); Neutrophils # (Auto) 3.8 Thou/mm3 (1.8-7.7); Neutrophils % (Auto) 61 % (37-80); Nucleated Red Blood Cell # 0.00 Thou/mm3 (0.00-0.00); Nucleated Red Blood Cell % 0 /100 WBC (0); Platelet Count 245 Thou/mm3 (140-440); RDW Standard Deviation 41.4 fL (35.1-43.9); Red Blood Count 5.07 Miln/mm3 (4.50-5.90); White Blood Count 6.2 Thou/mm3 (3.8-10.6)
[2025-05-24 15:00] LABS: Amphetamine/Methamp Scrn,U Negative (Negative); Barbiturate Screen,Urine Negative (Negative); Benzodiazepines Screen,Urine Negative (Negative); Benzoylecgonine Screen, Ur Negative (Negative); Fentanyl Screen,Urine Negative (Negative); Opiate Screen,Urine Negative (Negative); THC Screen,Urine Positive (Negative)
--- NOTE | 2025-05-24 15:14 | PC.SS ---
SS follow up note: Patient is medically cleared. SS contacted [facility], however [facility] was unable to respond today due to staffing limitations. SS will contact [facility] tomorrow morning.
[2025-05-24 15:23] LABS: Alanine Aminotransferase 9 U/L (10-49); Albumin, Serum 4.7 gm/dL (3.5-5.0); Albumin/Globulin Ratio 2.2 (1.2-2.2); Alkaline Phosphatase 78 U/L (46-116); Anion Gap 8 (7-16); Aspartate Amino Transferase 18 U/L (0-34); BUN/Creatinine Ratio 9 Ratio (12-20); Bilirubin,Total 0.3 mg/dL (0.3-1.2); Blood Urea Nitrogen 7 mg/dL (9-23); Calcium 9.1 mg/dL (8.3-10.6); Calcium (Corrected) 9.1 mg/dL (8.5-10.1); Carbon Dioxide 28.7 mMol/L (20.0-31.0); Chloride 107 mMol/L (98-107); Creatinine (Component) 0.8 mg/dL (0.6-1.3); Estimated Creatinine Clearance 131.2 mL/min (>60); Globulin 2.1 gm/dL (2.3-3.5); Glucose 83 mg/dL (74-106); Osmolality,Calculated 283 (275-295); Potassium 3.8 mMol/L (3.4-5.1); Sodium 144 mMol/L (136-145); Total Protein 6.8 gm/dL (5.7-8.2); eGFR > 60 See Note
--- NOTE | 2025-05-24 15:36 | PD.EDADULT ---
ED General RME/HPI General Chief complaint: Suicidal Stated complaint: SI; HITTING SELF; PANIC ATTACKS Time Seen by Provider: 05/24/25 14:14 Arrival date/time: 05/24/25 14:03 CC: Suicidal ideation with plan HPI patient has been suicidal for on and off for a long time . Patient stating he now has a plan to hang himself if he is released. Patient denies any physical pain. The patient is awake alert oriented animated with direct eye contact answering all questions appropriately and polite in conversation. RME / HPI RME / HPI narrative: 05/24/25 14:03 20-year-old male with no known medical history presents to the emergency room with a chief complaint of suicidal ideation. Patient states he has a history of mental health problems and is taking medication but it is not working. Patient states he has a plan to hang himself but does not want his family to bear the expenses I have greeted and performed a focused initial assessment of this patient. A comprehensive ED assessment and evaluation of the patient, analysis of all test results, and completion of the medical decision making process will be conducted by additional ED providers. Exam: GCS 15, alert and oriented x 3 Clear bilateral lung sounds Impression: Suicidal ideation Related Data Previous Rx's ?Medication ?Instructions ?Recorded amoxicillin 875 mg-potassium 1 tab PO BID #14 tabs 09/27/22 clavulanate 125 mg tablet ibuprofen 600 mg tablet 600 mg PO TID PRN pain #30 tabs 09/27/22 acetaminophen 500 mg tablet 500 mg PO QID PRN pain #14 tabs 10/26/23 (Acetaminophen Pain Relief) tramadol 50 mg tablet 50 mg PO Q8H PRN pain #10 tabs 10/26/23 alprazolam 0.25 mg tablet (Xanax) 0.25 mg PO BID ANXIETY #14 tabs 02/26/25 Allergies Allergy/AdvReac Type Severity Reaction Status Date / Time ibuprofen (From Motrin) Allergy Swelling Verified 05/24/25 14:07 of Lip/Tongue/Throat Review of Systems Review of Systems Narrative Review of Systems: GEN: No fever, no chills, no weight loss EYES: No discharge, no visual changes, no pain HEENT: No ear pain, no congestion, no sore throat PULM: No shortness of breath, no cough, no congestion CV: No chest pain, no dyspnea on exertion, no palpitations GI: No nausea, no vomiting, no diarrhea, no pain, no constipation : No frequency, no urgency, no dysuria MUSC/SKEL: No joint pain, no back pain SKIN: No rash PSYCH: No hallucinations, + depression HEME/LYMPH: No easy bleeding or bruising tendencies NEURO: No weakness, no headache Past Medical History Past Medical History CARDIAC: Negative Congestive Heart Failure RESPIRATORY: Negative Chronic Obstructive Pulmonary Disease (COPD) GENITOURINARY: Negative Renal Disease ENDOCRINE: Negative Diabetes Mellitus Type 1 or Diabetes Mellitus Type 2 PSYCHO/SOCIAL: Positive Psychiatric Problems, Schizophrenia, Bipolar Disorder, Attention Deficit Hyperactivity Disorder and Post Traumatic Stress Disorder Social History SMOKING STATUS: Current every day smoker ED Exam Narrative Physical exam: [General: Not in any acute distress Head normocephalic HEENT: Within acceptable limits Neck is supple nontender Chest equal chest rise nontender to palpation Respiratory: Clear to auscultation no wheezes crackles or rubs CV: Rate rhythm is regular no murmurs rubs or clicks Abdomen is soft nontender no masses positive bowel sounds all 4 quadrants Back: No CVA tenderness no spinous process tenderness from cervical spine thoracic and lumbar spine Skin: Intact no petechiae rash induration ulceration or crepitus Extremities: Moving all extremity against resistance cap refill less than 2 seconds neurosensory intact Neuro: Awake alert oriented x3 Glascow coma 15 no focal deficits] Course Course Course Narrative: 15:38: Cleared for crisis evaluation. Quality Measures none Orders Category Date Time Status 1799 Psychiatric Hold NOW Care 05/24/25 15:15 Ordered One-to-one observation NOW Care 05/24/25 15:10 Active Suicide precautions NOW Care 05/24/25 14:17 Active Diet Regular Diet 05/25/25 Breakfast Active CBC Stat Lab 05/24/25 14:44 Completed CMP [Comprehensive Metabolic Panel] Stat Lab 05/24/25 14:44 Completed Drug Screen,Urine Stat Lab 05/24/25 14:30 Completed UA, C/S IF [Urinalysis, C/S if Indicated] Stat Lab 05/24/25 14:30 Completed Vital Signs Vital signs: Vital Signs Temperature 98.5 F 05/24/25 14:25 Pulse Rate 89 05/24/25 14:25 Respiratory Rate 18 05/24/25 14:25 Blood Pressure 120/66 05/24/25 14:25 Pulse Oximetry (%) 100 05/24/25 14:25 Oxygen Delivery Method Room Air 05/24/25 14:25 Discharge Plan Prescriptions/Referrals Prescriptions/Med Rec: No Action amoxicillin-pot clavulanate 875-125 mg tablet 1 tab PO BID Qty: 14 0RF ibuprofen 600 mg tablet 600 mg PO TID PRN (Reason: pain) Qty: 30 0RF tramadol 50 mg tablet 50 mg PO Q8H PRN (Reason: pain) Qty: 10 0RF acetaminophen [Acetaminophen Pain Relief] 500 mg tablet 500 mg PO QID PRN (Reason: pain) Qty: 14 0RF alprazolam [Xanax] 0.25 mg tablet 0.25 mg PO BID MDD 2 Qty: 14 0RF Referrals: No Primary/Family,Physician [Primary Care Provider] - In 1 week Problem List Clinical Impression: Suicidal ideation Patient/Caregiver Discharge Instructions Print Language: Uzbek [facility] Clinical Information Provided by: patient Medical Records reviewed [facility] Meds/Rx considered, not ordered None Labs/Rad/Tests considered, not ordered None Chronic Illness/Social Conditions Explain: Depression suicidal ideation EKG EKG not done Labs Labs: interpreted by sd Lab(s) Interpretation(s): CBC shows no acute leukocytosis anemia thrombocytopenia CMP shows no significant electrolyte imbalances renal impairment transaminitis or T. bili ovation Urine is negative for UTI UDS is positive for THC. Imaging Imaging interpretation: none Medication Administration(s) none
--- NOTE | 2025-05-24 17:52 | PC.NURSE ---
PER MOM AT BEDSIDE PATIENT CAME IN TODAY DUE TO THE FACT THAT HE WAS SUPPOSED TO GO TO A FOLLOW UP APPT AT [facility]. PATIENT HAS HISTORY OF PTSD, ANXIETY, AND MARIJUANA USE. PATIENT WAS AT APPT AND STARTED TO FEEL SUICIDAL. PATIENT WAS RECENTLY DISCHARGED FROM [facility] IN [place] ABOUT ONE MONTH AGO. PATIENT IS CURRENTLY HAVING SUICIDAL THOUGHTS THAT HE IS UNABLE TO CONTROL.
[2025-05-24 18:39] VITALS: BP 115/72; PULSE 93; RESP 18; TEMP 36.6; O2SAT 98
--- NOTE | 2025-05-24 23:12 | PD.EDADDENDU ---
Emergency Room Addendum Addendum Narrative: 2300: Care assumed from Jeevan Foster NP. Past medical, surgical, social and family history reviewed. Vitals and home medications reviewed. Results and treatment plan discussed. I will assume the care of the patient at this time and will follow the patient. Please refer to the emergency department record for history and examination from initial visit.
--- NOTE | 2025-05-25 01:03 | PC.NURSE ---
pt sleeping eyes closed. even and unlabrored shest rise and fall. pt is not in any distress. no new orders at this time
--- NOTE | 2025-05-25 04:15 | PD.EDADDENDU ---
Emergency Room Addendum Addendum Narrative: There was no incident with this patient during my shift. Patient remains in stable condition. Patient is awaiting social work administrator consultation.
[2025-05-25 06:25] VITALS: BP 118/56; PULSE 80; RESP 18; TEMP 36.4; O2SAT 97
--- NOTE | 2025-05-25 06:29 | PD.EDADDENDU ---
Emergency Room Addendum <Jackelin Agosto - Last Filed: 05/25/25 11:58> Addendum Narrative: 0600: Care assumed from Dr. Wiggins, the previous shift emergency physician. Past medical, surgical, social and family history reviewed. Vitals and home medications reviewed. I will assume the care of the patient at this time, pending mental health evaluation and final disposition. Please refer to the emergency department record for history and examination from initial visit.?The following addendum documentation note is intended to reflect any pending information, findings, or radiology results not included in the patient?s initial chart. Patient is a 20-year-old male who limits in the emergency department pending social work evaluation for suicidal ideation. Patient is medically cleared. 1056a: [facility] has evaluated the patient and placed on a 5150 hold. At this time pending LPS placement. Patient has been accepted for transfer by Dr. Larry at [facility]. <Laura Pat MD - Last Filed: 05/25/25 14:46> Addendum Narrative: 0600: Care assumed from Dr. Wiggins, the previous shift emergency physician. Past medical, surgical, social and family history reviewed. Vitals and home medications reviewed. I will assume the care of the patient at this time, pending mental health evaluation and final disposition. Please refer to the emergency department record for history and examination from initial visit.?The following addendum documentation note is intended to reflect any pending information, findings, or radiology results not included in the patient?s initial chart. Patient is a 20-year-old male who limits in the emergency department pending social work evaluation for suicidal ideation. Patient is medically cleared.
[2025-05-25 07:00] VITALS: BP 121/62; PULSE 71; RESP 16; TEMP 36.7; O2SAT 98
--- NOTE | 2025-05-25 08:20 | PC.SS ---
SS follow up note; SS contacted [facility] and staff informed SS that [facility] clinician would be driving down to evaluate patient. SS updated patients nurseNicolasa.
[2025-05-25 10:00] VITALS: BP 101/57; PULSE 73; RESP 20; TEMP 37.1; O2SAT 99
--- NOTE | 2025-05-25 10:15 | PC.SS ---
SS follow up note; [facility] at bedside evaluating patient at the time.
--- NOTE | 2025-05-25 11:52 | PC.SS ---
Addendum entered by Pastora Mayen 05/25/25 12:06: SS follow up note; SS was contacted by Irma from [facility]. Accepting Dr. Larry Unit E #2. SS updated patients nurse Nicolasa. SS set up transportation for patient with [facility], ETA 1500. SS updated patient's nurse and Dr. Pat. Original Note: SS follow up note; SS faxed out to all [facility] facilities
[2025-05-25 12:00] VITALS: BP 110/70; PULSE 63; RESP 18; TEMP 36.8; O2SAT 99
[2025-05-25 14:00] VITALS: BP 113/72; PULSE 76; RESP 20; TEMP 36.6; O2SAT 98
--- NOTE | 2025-05-25 15:17 | PC.NURSE ---
Hand off report given to Michelle from [facility]. All belongings given to EMS. VSS, mary s/s of distress noted on transfer to stretcher.
== END 2025-05-25 15:00 ==
LOC: SERX 16:26
PROVIDERS: Nurse Practitioner Family; Emergency Provider Emergency Medicine
DX: R45.851 Suicidal ideations (principal); Z75.1 Person awaiting admission to adequate facility elsewhere
CPT/HCPCS: 36415; 80053; 80307; 81001; 85025; 96127; 99284; A9270